=== PATIENT | male | born 1940 | race Caucasian/White ===

== ENCOUNTER 2016-10-22 08:23 | Observation (INO) | payer MEDICARE ==
[~2016-10-22] VITALS: Ht 152.4 cm; Wt 94.0 kg
[~2016-10-22 08:23] MED LIST: ADULT ASPIRIN E81 MG PO; ALBUTERO1 IN; AMBIEN10 MG PO; AMBIEN5 MG OR; AMITRIPTYLIN25 MG PO; AMITRIPTYLIN50 MG PO; ASPIRIN CHEWABL81 MG PO; ASPIRIN LOW DOS81 MG PO; AUGMENTIN875TAB OR; AUGMENTIN875TAB PO; BAYER ASA325 MG PO; CARVEDILOL12.5 MG PO; CARVEDILOL6.25 MG PO; CEPHALEXIN500 MG PO; CIALIS2.5 MG PO; CIALIS20 MG PO; CIPROFLOXACN500 MG PO; CYMBALTA30 MG PO; CYMBALTA60 MG PO; DEPO-TESTOS100 MG/ML IM; DEPO-TESTOS200 MG/M1 IM; DIAZEPAM10 MG OR; DILAUDID4 MG OR; DILAUDID4 MG PO; DULCOLAX5 MG OR; DULERA1 AER IN; DURAGESIC75 MCG/H1 TD; EC ASPIRIN325 M1 OR; FENTANYL100 MCG/H TD; FLEXERIL10 MG PO; FLUARIX QUADRIV1 IN1 IM; FLUTICASONE50 MCG; FLUZONE SPLT1 M1 IM; FORTESTA TD; GABAPENTIN300 MG PO; GABAPENTIN600 MG PO; LASIX40 MG PO; LISINOPRIL5 MG; LISINOPRIL5 MG PO; METOLAZONE2.5 MG PO; MILK OF MAG30 ML/UDC PO; NAPROSYN500 MG OR; NEURONTIN800 MG OR; PERCOCET 5/325M1 TAB PO; PERCOCET1 TA2 OR; PLAVIX75 MG OR; PROAIR HFA IN; PYRIDIUM200 MG PO; ROBITUSSIN AC10 ML PO; SENNA S1 TAB PO; SERTRALINE HCL25 MG PO; SERTRALINE50 MG PO; SMZ-TMP DS1 TAB PO; TAM75CAP PO; TENORMIN OR; TRANSDERM-SCOP1.5 MG TD; VYTORIN 10/201 TAB OR; WAL-FEX D 1212 HOUR PO; XANAX0.25 MG OR; ZOLPIDEM10 MG PO; ZOLPIDEM5 M1 PO; ZPAK PO; [UNRECOGNIZED DRUG - SUPPLY]; [UNRECOGNIZED DRUG - SUPPLY] SC; tylenol#3 OR
[2016-10-22 08:53] LABS: HEMATOCRIT 55.7 % (39.0-50.0); HEMOGLOBIN 18.6 g/dl (14.0-18.0); IMMATURE GRANULOCYTES 0.9 % (0.0-1.0); MEAN CELL VOLUME 88.1 fL CALC (80.0-100.0); MEAN CORPUSCULAR HGB 29.4 pG CALC (26.0-32.0); MEAN CORPUSCULAR HGB CONC 33.4 g/L CALC (32.0-36.0); NEUT# 10.03 thou/uL (1.82-7.42); RED BLOOD COUNT 6.32 mill/uL (4.70-6.10); RED CELL DISTRI WIDTH 15.8 % (11.5-15.5)
[2016-10-22 09:19] LABS: ALBUMIN 4.7 g/dL (3.2-5.0); ALKALINE PHOSPHATASE 71 u/l (38-126); ANION GAP 17 (6-22 (CALC)); BILIRUBIN, TOTAL 1.4 mg/dL (0.0-1.4); BUN 27 mg/dL (8-23); BUN/CREATININE RATIO 25 (12-20 (CALC)); CALCIUM 9.8 mg/dL (8.4-10.2); CARBON DIOXIDE 31 mmol/l (22-30); CHLORIDE 93 mmol/l (95-108); CREATININE 1.1 mg/dL (0.7-1.3); GFR > 60 ML/MIN (>=60 (CALC)); GFR FOR AFR.AMER. > 60 ML/MIN (>=60 (CALC)); GLUCOSE 100 mg/dL (82-115); POTASSIUM 3.6 mmol/l (3.5-5.1); SGOT/AST 35 u/l (19-48); SGPT/ALT 36 u/l (11-66); SODIUM 138 mmol/l (137-146); TOTAL PROTEIN 7.8 g/dL (6.3-8.2)
[2016-10-22] MEDS ORDERED: COLACE100 MG PO (09:24)
[2016-10-22] MEDS ORDERED: MIRALAX3350 N1 PO (09:24)
[2016-10-22 09:29] LABS: URINE BILIRUBIN - DIPSTICK NEGATIVE (NEGATIVE); URINE BLOOD DIPSTICK NEGATIVE (NEGATIVE); URINE CLARITY CLEAR; URINE COLOR YELLOW; URINE GLUCOSE - DIPSTICK NEGATIVE (NEGATIVE); URINE KETONE NEGATIVE (NEGATIVE); URINE LEUK ESTERASE NEGATIVE (NEGATIVE); URINE NITRITE - DIPSTICK NEGATIVE (Negative); URINE SPECIFIC GRAVITY 1.015; URINE UROBILINOGEN - DIPSTICK 0.2 E.U./dL (0.2)
[2016-10-22 09:30] LABS: URINE PROTEIN - DIPSTICK Trace mg/dL (NEG-TRACE)
[2016-10-22 09:31] LABS: MYOGLOBIN 432 ng/mL (0 - 121)
[2016-10-22 12:20] VITALS: BP 148/71
[2016-10-22 15:42] VITALS: BP 135/67
[2016-10-22 20:00] VITALS: BP 130/57
[2016-10-23 04:00] VITALS: BP 116/61
[2016-10-23 05:32] LABS: HEMATOCRIT 48.8 % (39.0-50.0); HEMOGLOBIN 16.6 g/dl (14.0-18.0); IMMATURE GRANULOCYTES 0.6 % (0.0-1.0); MEAN CELL VOLUME 88.9 fL CALC (80.0-100.0); MEAN CORPUSCULAR HGB 30.2 pG CALC (26.0-32.0); NEUT# 6.99 thou/uL (1.82-7.42); RED BLOOD COUNT 5.49 mill/uL (4.70-6.10); RED CELL DISTRI WIDTH 15.6 % (11.5-15.5)
[2016-10-23 05:41] LABS: ALBUMIN 3.6 g/dL (3.2-5.0); ALKALINE PHOSPHATASE 57 u/l (38-126); ANION GAP 12 (6-22 (CALC)); BUN 21 mg/dL (8-23); BUN/CREATININE RATIO 24 (12-20 (CALC)); CALCIUM 8.9 mg/dL (8.4-10.2); CARBON DIOXIDE 32 mmol/l (22-30); CHLORIDE 97 mmol/l (95-108); CREATININE 0.9 mg/dL (0.7-1.3); GFR > 60 ML/MIN (>=60 (CALC)); GFR FOR AFR.AMER. > 60 ML/MIN (>=60 (CALC)); GLUCOSE 88 mg/dL (82-115); POTASSIUM 3.9 mmol/l (3.5-5.1); SGOT/AST 31 u/l (19-48); SGPT/ALT 29 u/l (11-66); SODIUM 136 mmol/l (137-146); TOTAL PROTEIN 6.2 g/dL (6.3-8.2)
[2016-10-23 09:41] VITALS: BP 124/58
[2016-10-23 16:11] VITALS: BP 105/56
[2016-10-23 20:30] VITALS: BP 134/65
[2016-10-24 05:35] VITALS: BP 117/72
[2016-10-24 08:00] VITALS: BP 134/59
[2016-10-24 08:55] VITALS: BP 134/59
== END 2016-10-24 14:40 | disposition home or self-care (01) ==
LOC: ENPENDDIS → ED 08:23 → ED-I 10:13 → ED 10:25 → MS2 10:26
PROVIDERS: Emergency Medicine; ADMIT Internal Medicine Geriatric Medicine; ATTEND Internal Medicine Geriatric Medicine
PROC: 0T9B70Z Drainage of Bladder with Drainage Device, Via Natural or Artificial Opening (ICD-10-PCS; principal; 2016-10-22)
DX: K59.03 Drug induced constipation (principal); N40.1 Benign prostatic hyperplasia with lower urinary tract symptoms; R33.8 Other retention of urine; G60.0 Hereditary motor and sensory neuropathy; I25.10 Atherosclerotic heart disease of native coronary artery without angina pectoris; I10 Essential (primary) hypertension; J44.9 Chronic obstructive pulmonary disease, unspecified; T40.2X5A Adverse effect of other opioids, initial encounter; F11.20 Opioid dependence, uncomplicated; R97.20 Elevated prostate specific antigen [PSA]; Z96.89 Presence of other specified functional implants; Z99.3 Dependence on wheelchair; Z95.0 Presence of cardiac pacemaker; R94.31 Abnormal electrocardiogram [ECG] [EKG]

== ENCOUNTER 2017-06-02 09:18 | Emergency (ER) | payer MEDICARE ==
[~2017-06-02] VITALS: Ht 177.8 cm; Wt 102.0 kg
[~2017-06-02 09:18] MED LIST changes: +COLACE100 MG PO; +MIRALAX3350 N1 PO
[2017-06-02] MEDS ORDERED: LIPITOR20 M1 PO (10:31)
[2017-06-02] MEDS ORDERED: XARELTO10 MG PO (10:32)
[2017-06-02 14:21] VITALS: BP 166/88
== END 2017-06-02 15:09 | disposition home or self-care (01) ==
LOC: ED 09:18
DX: I82.812 Embolism and thrombosis of superficial veins of left lower extremity (principal); M79.605 Pain in left leg; Z79.01 Long term (current) use of anticoagulants; Z95.810 Presence of automatic (implantable) cardiac defibrillator

== ENCOUNTER 2017-06-19 14:37 | Inpatient (IN) | payer MEDICARE ==
[~2017-06-19] VITALS: Ht 177.8 cm; Wt 88.0 kg
[~2017-06-19 14:37] MED LIST changes: +ATORVASTATIN CA40 MG PO; -CARVEDILOL12.5 MG PO; +CARVEDILOL25 MG PO; +XARELTO10 MG PO
[2017-06-19 15:00] VITALS: BP 159/78
--- NOTE | 2017-06-19 15:00 | NUR ---
PT ARRIVED TO FLOOR VIA OWN ELECTRIC WHEELCHAIR. TRANSFERED OVER TO BED BY STAFF X 2. PT. CYANOTIC. O2 @ 2L VIA NC APPLIED. PT REPORTS URINARY RETENTION. PELVIC DISTENTION AND DISCOMFORT. HOPPER 16 FR INSERTED BY STERILE TECHNIQUE. SAMPLE SENT TO LAB. IVS INSETION ATTEMPTED BY MULTIPLA STAFF. #22 RH, IVF CONNECTED. CALL LIGHT REVIEWED AND IN REACH. PLAN OF CARE DISCUSSED. FALL PRECAUTIONS REINFORCED. PT STATES UNDERSTADNING OF INFORMATION.
--- NOTE | 2017-06-19 16:00 | NUR ---
TYLENOL PO ADMINISTERED FOR TEMP OF 101.3. WILL CONTINUE TO MONITOR.
[2017-06-19 16:26] LABS: IMMATURE GRANULOCYTES 0.8 % (0.0-1.0); MEAN CELL VOLUME 93.7 fL CALC (80.0-100.0); MEAN CORPUSCULAR HGB 30.7 pG CALC (26.0-32.0); MEAN CORPUSCULAR HGB CONC 32.8 g/L CALC (32.0-36.0); NEUT# 14.89 thou/uL (1.82-7.42); RED BLOOD COUNT 5.11 mill/uL (4.70-6.10); RED CELL DISTRI WIDTH 15.3 % (11.5-15.5)
[2017-06-19 16:28] LABS: URINE BILIRUBIN - DIPSTICK NEGATIVE (NEGATIVE); URINE BLOOD DIPSTICK LARGE (NEGATIVE); URINE COLOR YELLOW; URINE GLUCOSE - DIPSTICK NEGATIVE (NEGATIVE); URINE KETONE NEGATIVE (NEGATIVE); URINE LEUK ESTERASE LARGE (Negative); URINE NITRITE - DIPSTICK NEGATIVE (Negative); URINE PH 7.5 (4.5-8.0); URINE PROTEIN - DIPSTICK 100 mg/dL (NEG-TRACE); URINE SPECIFIC GRAVITY 1.015
[2017-06-19 16:29] LABS: URINE CLARITY TURBID
[2017-06-19 16:30] LABS: HEMATOCRIT 47.9 % (39.0-50.0); HEMOGLOBIN 15.7 g/dl (14.0-18.0)
[2017-06-19 16:32] LABS: URINE BACTERIA MODERATE hpf; URINE SQUAMOUS EPITHELIAL CELL FEW EPI/hpf (0-FEW); URINE WBC 50-100 WBC/hpf (0-5)
[2017-06-19 16:32] LABS: ANION GAP 16 (6-22 (CALC)); BUN 16 mg/dL (8-23); BUN/CREATININE RATIO 15 (12-20 (CALC)); CARBON DIOXIDE 33 mmol/l (22-30); CHLORIDE 95 mmol/l (95-108); CREATININE 1.1 mg/dL (0.7-1.3); GFR > 60 ML/MIN (>=60 (CALC)); GFR FOR AFR.AMER. > 60 ML/MIN (>=60 (CALC)); POTASSIUM 3.3 mmol/l (3.5-5.1); SODIUM 141 mmol/l (137-146)
[2017-06-19 20:30] VITALS: BP 131/73
--- NOTE | 2017-06-19 22:15 | NUR ---
PT.MEDICATED FOR PAIN IN PELVIC URINARY TRACT AREA/BURNING 8/10 REPORTED AND HEADACHE. DENIES ANY OTHER NEEDS AT THIS TIME.
--- NOTE | 2017-06-19 22:49 | NUR ---
PT.IS UPRIGHT IN BED WATCHING TV W/LIGHTS ON. PT.MEDICATED ORDERS PROVIDE FOR PM MEDICATIONS. PT.REPORTS THAT HE NORMALLY TAKES DILAUDID 4MG AT BEDTIME FOR PAIN AND SLEEP. I CONTACTED REGARDING [facility] MED AND RECEIVED AN ORDER. PT.DENIES ANY OTHER NEEDS AT THIS TIME. CALL LIGHT W/IN REACH
[2017-06-20] VITALS (7 sets, daily range): BP systolic 101–148; BP diastolic 37–81
--- NOTE | 2017-06-20 00:30 | NUR ---
PT.MEDICATED FOR TEMP OF 102.1, ROOM TURNED COOL AND PT.LEFT W/SHEET ONLY
--- NOTE | 2017-06-20 03:43 | NUR ---
PT.FEVER BROKE @98.8. PT.IS VERY SWEATY, BED IS WET. PT.PROVIDED BEDBATH AND REDRESSED W/BEDDING CHANGE. NEW BAG OF IV FLUIDS RUNNING AT THIS TIME AND HOPPER CATHETER EMPTIED OF SAIRA CLOUDY URINE 500CC'S. HOPPER CATHETER YANG-CARE PROVIDED AT THIS TIME. DENIES ANY OTHER NEEDS AT THIS TIME. CALL LIGHT IS W/IN REACH
[2017-06-20 05:26] LABS: HEMATOCRIT 43.9 % (39.0-50.0); HEMOGLOBIN 14.1 g/dl (14.0-18.0); IMMATURE GRANULOCYTES 0.9 % (0.0-1.0); MEAN CELL VOLUME 95.2 fL CALC (80.0-100.0); MEAN CORPUSCULAR HGB 30.6 pG CALC (26.0-32.0); MEAN CORPUSCULAR HGB CONC 32.1 g/L CALC (32.0-36.0); NEUT# 14.78 thou/uL (1.82-7.42); RED BLOOD COUNT 4.61 mill/uL (4.70-6.10); RED CELL DISTRI WIDTH 15.6 % (11.5-15.5)
[2017-06-20 05:51] LABS: ALBUMIN 3.3 g/dL (3.2-5.0); ALKALINE PHOSPHATASE 75 u/l (38-126); ANION GAP 14 (6-22 (CALC)); BUN 17 mg/dL (8-23); BUN/CREATININE RATIO 16 (12-20 (CALC)); CARBON DIOXIDE 33 mmol/l (22-30); CHLORIDE 97 mmol/l (95-108); CREATININE 1.1 mg/dL (0.7-1.3); GFR > 60 ML/MIN (>=60 (CALC)); GFR FOR AFR.AMER. > 60 ML/MIN (>=60 (CALC)); POTASSIUM 3.5 mmol/l (3.5-5.1); SGOT/AST 23 u/l (19-48); SGPT/ALT 26 u/l (11-66); SODIUM 141 mmol/l (137-146); TOTAL PROTEIN 5.9 g/dL (6.3-8.2)
--- NOTE | 2017-06-20 07:00 | NUR ---
RECEIVED BEDSIDE REPORT FROM MALIK BECKHAM. RESTING IN HIGH FOWLERS WITH EYES CLOSED, AWAKENS EASILY. RESPS EVEN AND UNLABORED ON O2 VIA NC, TELE MONITOR IN PLACE. #22 RH INFUSING WITHOUT DIFFICULTY, SITE APPEARS HEALTHY. HOPPER PATENT, DRAINING LISA COLORED URINE TO GRAVITY, STRAP TO UPPER RIGHT LEG. VOICES NO NEEDS AT THIS TIME. BED IN LOWEST POSITION WITH WHEELS LOCKED. PLAN OF CARE DISCUSSED. SAFETY PRECAUTIONS REINFORCED. BED ALARM ON FOR SAFETY. CALL LIGHT WITHIN REACH. WILL CONTINUE TO MONITOR
--- NOTE | 2017-06-20 09:00 | NUR ---
DR GREGORIO IN WITH PT, NEW ORDERS RECEIVED.
--- NOTE | 2017-06-20 12:00 | NUR ---
RESTING IN HIGH FOWLERS EATING LUNCH. RESPS EVEN AND UNLABORED ON O2 VIA NC, TELE MONITOR IN PLACE. HOPPER PATENT DRAINING LISA COLORED URINE TO GRAVITY. #22 RH INFUSING WIHTOUT DIFFICULTY, SITE APPEARS HEALTHY. DENIES PAIN OR DISCOMFORT. CALL LIGHT WITHIN REACH. WILL CONTINUE TO MONITOR.
[2017-06-20] MEDS ORDERED: LOPRESSOR50 M1 PO (15:27)
[2017-06-20] MEDS ORDERED: COLACE100 MG PO (15:28)
--- NOTE | 2017-06-20 15:47 | NUR ---
REPOSITIONED ON LEFT SIDE FOR COMFORT. RESPS EVEN AND UNLABORED ON O2 VIA NC, TELE MONITOR IN PLACE. #22 RH INFUSING WITHOUT DIFFICULTY, SITE APPEARS HEALTHY. HOPPER PATENT, DRAINING LISA COLORED URINE TO GRAVITY, STRAP TO UPPER RIGHT LEG. DENIES PAIN OR DISCOMFORT. CALL LIGHT WITHIN REACH. WILL CONTINUE TO MONITOR.
--- NOTE | 2017-06-20 19:30 | NUR ---
PATIENT RESTING IN BED-AWAKE ALERT AND ORIENTEDX3. PATIENT REPOSITIONED IN BED. HEELS ELEVATED OFF THE MATTRESS. O2 VIA NASAL CANNULA IN PLACE. HOPPER CATH PATENT AND DRAINING CLEAR YELLOW URINE. IV SITE TO RIGHT HAND APPEARS HEALTHY WITH IVF D51/2NS PATENT AND INFUSING [id number]/HR. SAFETY PRECAUTIONS REINFORCED.CALL LIGHT IN REACH. WILL CONT TO MONITOR.
--- NOTE | 2017-06-21 | NUR ---
PATIENT RESTING IN BED-MEDICATED FOR C/O CHRONIC PAIN WITH DILAUDID 4MG PO AND FOR SLEEP WITH RESTORIL 15MG PO. CALL LIGHT IN REACH. WILL CONT TO MONITOR.
[2017-06-21 00:25] VITALS: BP 106/58
[2017-06-21 03:44] VITALS: BP 116/62
--- NOTE | 2017-06-21 04:00 | NUR ---
PATIENT APPEARS SLEEPING WITH EYES CLOSED AND O2 VIA NASAL CANNULA IN PLACE. IVF D51/2NS PATENT AND INFUSING RIGHT HAND IV SITE AT 100/HR. SITE APPERS ADA AT THIS TIME. HOPPER PATENT AND DRAINING CLEAR YELLOW URINE. CALL LIGHT IN REACH. WILL CONT TO MONITOR.
--- NOTE | 2017-06-21 08:00 | NUR ---
PT AWAKE, ALERT, RESTS IN THE BED IN NO DISTRESS. LUNGS ARE CLEAR BUT SOMEWHAT DIMINISHED IN THE BASES, 2 LPM NC. PT STATES NO BM SINCE SUNDAY, TO ADDRESS WITH DR GREGORIO. PEDAL EDEMA IS 2+, WHICH MAY BE HIS NORM. HOPPER IN PLACE.
[2017-06-21 11:00] VITALS: BP 128/62
--- NOTE | 2017-06-21 12:00 | NUR ---
PT REMAINS BEFORE, NO ACUTE DISTRESS. PT PROVIDED CITRATE OF MAGNESIA TO ASSIST IN HAVING BM. PAIN MED PROVIDED ORDERED THIS AM.
[2017-06-21 16:00] VITALS: BP 132/71
--- NOTE | 2017-06-21 16:00 | NUR ---
PT BATHED BY NURSING ASSISTANTS. PT'S IS AT BEDSIDE, PROVIDES HELP NEEDED. ABX GIVEN ORDERED. NO SOB, NO URINARY SYMPTOMS.
--- NOTE | 2017-06-21 19:15 | NUR ---
PT SITTING UP IN BED WATCHING. PT IS ALERT AND ORIENTED X3 . PERRLA. RESP ARE EVEN AND UNLABORED. NO DISTRESS NOTED. LUNGS ARE CLEAR. O2 2L NC IN PLACE. HR REGULAR. TELE IN PLACE. PULSES PALPABLE THROUGHOUT. EDEMA TO BILAT LOWER EXT. PT STATES THAT THIS IS NORMAL FOR HIM. BS ACTIVE. #22 RIGHT HAND WITH D51/2 @100CC/HR HOPPER DRAINING CLEAR YELLOW URINE. WILL CONTINUE TO MONITOR. CALL LIGHT WITH IN REACH.
[2017-06-21 19:22] VITALS: BP 155/87
--- NOTE | 2017-06-21 20:00 | NUR ---
PT ASSISTED TO BATHROOM. COMPLETE ASSISTANCE REQUIRED. PT WITH MULTIPLE DIFFICULTIES TO AND FROM BATHROOM. PT ASSISTED BACK TO BED. WILL CONTINUE TO MONITOR
--- NOTE | 2017-06-21 21:14 | NUR ---
#22 RIGHT HAND REMOVED. CATH TIP INTACT. #20 LFA STARTED BY ROSAURA BECKHAM. PT TOLERATED WELL
[2017-06-22] VITALS: BP 115/61
--- NOTE | 2017-06-22 | NUR ---
PT RESTING IN BED EYES CLOSED. RESP ARE EVEN AND UNLABORED. NO DISTRESS NOTED. WILL CONTINUE TO MONITOR
--- NOTE | 2017-06-22 04:00 | NUR ---
PT RESTING IN BED WITH EYES CLOSED. RESP ARE EVEN AND UNLABORED. NO DISTRESS NOTED. WILL CONTINUE TO MONITOR
[2017-06-22 05:30] VITALS: BP 125/71
[2017-06-22 06:37] LABS: HEMATOCRIT 42.6 % (39.0-50.0); HEMOGLOBIN 13.6 g/dl (14.0-18.0); IMMATURE GRANULOCYTES 0.5 % (0.0-1.0); MEAN CELL VOLUME 96.4 fL CALC (80.0-100.0); MEAN CORPUSCULAR HGB 30.8 pG CALC (26.0-32.0); MEAN CORPUSCULAR HGB CONC 31.9 g/L CALC (32.0-36.0); NEUT# 5.53 thou/uL (1.82-7.42); RED BLOOD COUNT 4.42 mill/uL (4.70-6.10); RED CELL DISTRI WIDTH 15.1 % (11.5-15.5)
[2017-06-22 06:44] LABS: ALBUMIN 2.9 g/dL (3.2-5.0); ALKALINE PHOSPHATASE 68 u/l (38-126); ANION GAP 12 (6-22 (CALC)); BILIRUBIN, TOTAL 0.3 mg/dL (0.0-1.4); BUN 15 mg/dL (8-23); BUN/CREATININE RATIO 14 (12-20 (CALC)); CARBON DIOXIDE 35 mmol/l (22-30); CHLORIDE 99 mmol/l (95-108); GFR > 60 ML/MIN (>=60 (CALC)); GFR FOR AFR.AMER. > 60 ML/MIN (>=60 (CALC)); SGPT/ALT 57 u/l (11-66); SODIUM 142 mmol/l (137-146); TOTAL PROTEIN 5.4 g/dL (6.3-8.2)
[2017-06-22 06:47] LABS: SGOT/AST 55 u/l (19-48)
[2017-06-22 07:32] VITALS: BP 139/71
--- NOTE | 2017-06-22 07:45 | NUR ---
ASSESSMENT IS COMPLETED: IV SITE IS FREE FROM REDNESS OR EDEMA. NO DISTRESS NOTED. HR IS REG, PULSES ARE STRONG X4,ABD IS SOFT WITH ACTIVE BS, HOPPER IN PLACE. CONTINUE TO OSBERVE AND MONITOR.
--- NOTE | 2017-06-22 10:00 | NUR ---
HOPPER DISCONTINUED PT TOLERATED WELL. HAS VOIDED WITHIN 30MINUTES AFTER PULLING.
--- NOTE | 2017-06-22 10:50 | NUR ---
[facility]NA[facility] IN TO VISIT WITH THE PT. INQUIRING INFORMATION.
[2017-06-22 11:30] VITALS: BP 168/77
--- NOTE | 2017-06-22 12:00 | NUR ---
PT IS RELAXING IN BED WITH NO DISTRESS NOTED. IV SITE IS FREE FROM REDNESS OR EDEMA.
[2017-06-22 16:00] VITALS: BP 141/70
--- NOTE | 2017-06-22 16:01 | NUR ---
PT IS NEEDING THE BEDPAN,IV SITE IS FREE FROM REDNESS OR EDEMA. CONTINUE TO OSBERVE AND MONITOR.
--- NOTE | 2017-06-22 19:15 | NUR ---
PT SITTING UP IN BED WATCHING TV. PT IS ALERT AND ORIENTED X3. PERRLA. RESP ARE EVEN AND UNLABORED. NO DISTRESS NOTED. LUNGS ARE DIMINISHED IN THE BASES OTHERWISE CLEAR THROUGHOUT. HR REGULAR. TELE IN PLACE. PULSES PALPABLE THROUGHOUT. EDEMA TO BILAT LOWER EXTTREMITIES. PT STATES THAT THIS IS THE NORMAL FOR HIM DUE TO CMT. BS ACTIVE. PT VOIDING VIA URINAL. #20 LFS WITH D5 1/2 NS @100CC/HR INFUSING. NO REDNESS OR EDEMA NOTED. WILL CONTINUE TO MONITOR. CALL LIGHT IN REACH.
[2017-06-22 20:24] VITALS: BP 124/69
[2017-06-23] VITALS (7 sets, daily range): BP systolic 132–179; BP diastolic 71–102
--- NOTE | 2017-06-23 | NUR ---
PT RESTING IN BED. INTERMITTENT SLEEP NOTED. PT USING URINAL FREQUENTLY WITH SMALL OUTPUT WHEN VOIDING. PT DENIES PAIN WHEN VOIDING. WILL CONTINUE TO MONITOR
--- NOTE | 2017-06-23 04:09 | NUR ---
PT RESTING IN BED WITH EYES CLOSED. RESP ARE EVEN AND UNLABORED. NO DISTRESS NOTED. WILL CONTINUE TO MONITOR
[2017-06-23 05:58] LABS: HEMOGLOBIN 13.6 g/dl (14.0-18.0); IMMATURE GRANULOCYTES 1.3 % (0.0-1.0); MEAN CORPUSCULAR HGB 30.4 pG CALC (26.0-32.0); MEAN CORPUSCULAR HGB CONC 31.6 g/L CALC (32.0-36.0); NEUT# 3.9 thou/uL (1.82-7.42); RED BLOOD COUNT 4.48 mill/uL (4.70-6.10); RED CELL DISTRI WIDTH 15.2 % (11.5-15.5)
[2017-06-23 06:06] LABS: ALBUMIN 2.9 g/dL (3.2-5.0); ALKALINE PHOSPHATASE 66 u/l (38-126); ANION GAP 13 (6-22 (CALC)); BILIRUBIN, TOTAL 0.3 mg/dL (0.0-1.4); BUN 11 mg/dL (8-23); BUN/CREATININE RATIO 12 (12-20 (CALC)); CARBON DIOXIDE 32 mmol/l (22-30); CHLORIDE 102 mmol/l (95-108); CREATININE 0.9 mg/dL (0.7-1.3); GFR > 60 ML/MIN (>=60 (CALC)); GFR FOR AFR.AMER. > 60 ML/MIN (>=60 (CALC)); POTASSIUM 3.6 mmol/l (3.5-5.1); SGOT/AST 41 u/l (19-48); SGPT/ALT 57 u/l (11-66); SODIUM 143 mmol/l (137-146); TOTAL PROTEIN 5.4 g/dL (6.3-8.2)
--- NOTE | 2017-06-23 07:40 | NUR ---
ASSESSMENT IS COMPLTED; IV SITE IS FREE FROM REDNESS OR EDEMA. BREATH SOUNDS ARE CLEAR, BILATERALLY, NO C/O SOB, HR IS REG,PULSES ARE STRONG X4. ABD IS SOFT WITH ACTIVE BS, CONTINUE TO OBSERVE AND MONITOR.
--- NOTE | 2017-06-23 12:10 | NUR ---
PT IS RELAXING IN BED WITH NO DISTRESS NOTED. IV SITE IS FREE FROM REDNESS OR EDEMA.
--- NOTE | 2017-06-23 16:10 | NUR ---
PT IS VISITING WITH HIS NO DISTRESS NOTED. IV SITE IS FREE FROM REDNESS OR EDEMA. TELE MONITOR IN PLACE. CONTINUE TO OBSERVE AND MONITOR.
--- NOTE | 2017-06-23 19:43 | NUR ---
PT IN HIGH FOWLERS A/O X3, RESPIRATIONS EVEN AND UNLABORED ON RA. DENIES PAIN OR DISCOMFORT. D51/2NS INFUSING TO LFA AT [facility]. TELE IN PLACE. ENCOURAGED TO USE CALL LIGHT FOR ASSISTANCE, WILL CONTINUE TO MONITOR.
--- NOTE | 2017-06-23 23:03 | NUR ---
IN SEMIFOWLERS WITH EYES CLOSED, RESPIRATIONS EVEN AND UNLABORED.
--- NOTE | 2017-06-24 01:00 | NUR ---
PT IN HIGHFOWLERS USING ELECTRICAL SHAVER, A/O X3.
[2017-06-24 01:05] VITALS: BP 168/82
--- NOTE | 2017-06-24 01:49 | NUR ---
C/O PAIN TO LOWER EXTRMITIES, TYLENOL 650MG PO PROVIDED AT THIS TIME.
--- NOTE | 2017-06-24 03:00 | NUR ---
PT USING CALL LIGHT, STATES TEMP IN ROOM IS TOO COLD, ROOM TEMP ADJUTED. CALL LIGHT IN REACH. PT IS A/O X3.
--- NOTE | 2017-06-24 03:30 | NUR ---
PT USING CALL LIGHT, STATES TEMP IN ROOM IS TOO HOT, ROOM TEMP ADJUTED. CALL LIGHT IN REACH.
[2017-06-24 03:58] VITALS: BP 159/73
--- NOTE | 2017-06-24 04:30 | NUR ---
PT USING CALL LIGHT, STATES TEMP IN ROOM IS TOO COLD, ROOM TEMP ADJUTED. CALL LIGHT IN REACH. RESPIRATIONS EVEN AND UNLABORED ON RA.
[2017-06-24 05:28] LABS: HEMATOCRIT 43.4 % (39.0-50.0); HEMOGLOBIN 13.9 g/dl (14.0-18.0); IMMATURE GRANULOCYTES 2.3 % (0.0-1.0); MEAN CELL VOLUME 95.2 fL CALC (80.0-100.0); MEAN CORPUSCULAR HGB 30.5 pG CALC (26.0-32.0); NEUT# 4.34 thou/uL (1.82-7.42); RED BLOOD COUNT 4.56 mill/uL (4.70-6.10)
[2017-06-24 05:44] LABS: ANION GAP 13 (6-22 (CALC)); BUN 9 mg/dL (8-23); BUN/CREATININE RATIO 11 (12-20 (CALC)); CARBON DIOXIDE 30 mmol/l (22-30); CHLORIDE 102 mmol/l (95-108); CREATININE 0.8 mg/dL (0.7-1.3); GFR > 60 ML/MIN (>=60 (CALC)); GFR FOR AFR.AMER. > 60 ML/MIN (>=60 (CALC)); POTASSIUM 3.7 mmol/l (3.5-5.1); SODIUM 142 mmol/l (137-146)
--- NOTE | 2017-06-24 07:45 | NUR ---
ASSESSMENT IS COMPLETED: IV SITE IS FREE FROM REDNESS OR EDEMA. PT IS RESTING WITH EYES CLOSED. HR IS REG,PULSES ARE STRONG X4. ABD IS SOFT WITH ACTIVE BS. CONTINUE TO OBSERVE AND MONITOR.
[2017-06-24 08:35] VITALS: BP 142/67
[2017-06-24 11:00] VITALS: BP 150/74
--- NOTE | 2017-06-24 12:15 | NUR ---
PT HAS BEEN RESTING OFF AND ON THIS AM. DR. GREGORIO IN TO VISIT WITH PT. IV SITE IS FREE FROM REDNESS OR EDEMA. CONTINUE TO OBSERVE AND MONITOR.
--- NOTE | 2017-06-24 13:12 | NUR ---
pt had a large bm
--- NOTE | 2017-06-24 13:58 | NUR ---
PT HAS LEFT THE UNIT IN HIS SCOOTER.
--- NOTE | 2017-06-24 15:31 | NUR ---
PT ABLE TO PLACE SELF BACK TO BED WITH MINIMAL ASSIST. PLACED HIS OWN SCD BOOTS ON. IV SITE IS FREE FROM REDNESS OR EDEMA. TOLERATED MOVE WELL,. NO SOB EXIBITED,
[2017-06-24 16:00] VITALS: BP 154/82
--- NOTE | 2017-06-24 16:10 | NUR ---
PT IS IN BED WATCHING TV. NO DISTRESS NOTED. IV SITE IS FREE FROM REDNESS OR EDEMA. CONTINUE TO OSBERVE AND MONITOR.
[2017-06-24 19:20] VITALS: BP 159/87
--- NOTE | 2017-06-24 19:30 | NUR ---
PATIENT RESTING IN BED-AWAKE ALERT AND ORIENTEDX3. NO O2 AT THIS TIME WITH O2 SAT OF 94%. NO COMPLAINTS AT THIS TIME. HEP LOCK TO LEFT FOREARM-SITE APPEARS HEALTHY AT THIS TIME. VOIDING IN URINAL LISA URINE. YVONNE LE SWELLING NOTED AND FEET ELEVATED ON PILLOWS. DECLINES ANY SCD'S AT THIS TIME. PRODUCTIVE COUGH WITH THICK YELLOW SECREATIONS. SAFETY PRECAUTIONS REINFORCED. CALL LIGHT IN REACH. WILL CONT TO MONITOR.
--- NOTE | 2017-06-24 19:53 | NUR ---
CPT DONE. PATIENT WELL TOLERATED CPT. COUGH UP THICK YELLOHISH SECRETION.
--- NOTE | 2017-06-24 22:50 | NUR ---
PATIENT MEDICATED FOR SLEEP WITH RESTORIL 15MG PO AND FOR PAIN WITH DIDLAUDID 4MG PO FOR 9/10 LEG PAIN. CALL LIGHT IN REACH. WILL CONT TO MONITOR.
--- NOTE | 2017-06-24 23:53 | NUR ---
PATIENT MEDICATED FOR SLEEP WITH RESTORIL 15MG PO AND FOR PAIN WITH DILAUDID 4MG FOR 9/10 LEG PAIN. CALL LIGHT IN REACH. WILL CONT TO MONITOR.
[2017-06-25 00:03] VITALS: BP 141/66
--- NOTE | 2017-06-25 00:05 | NUR ---
PATIENT APPEARS SLEEPING AT THIS TIME WITH HOB ELEVATED AND EYES CLOSED. CALL LIGHT IN REACH. WILL CONT TO MONITOR.
--- NOTE | 2017-06-25 02:55 | NUR ---
APPEARS SLEEPING AT THIS TIME WITH HOB ELEVATED AND EYES CLOSED. CALL LIGHT IN REACH. WILL CONT TO MONITOR.
[2017-06-25 04:47] VITALS: BP 170/81
[2017-06-25 04:50] LABS: HEMOGLOBIN 14.2 g/dl (14.0-18.0); IMMATURE GRANULOCYTES 4.6 % (0.0-1.0); MEAN CELL VOLUME 94.9 fL CALC (80.0-100.0); MEAN CORPUSCULAR HGB CONC 31.6 g/L CALC (32.0-36.0); NEUT# 4.78 thou/uL (1.82-7.42); RED BLOOD COUNT 4.74 mill/uL (4.70-6.10); RED CELL DISTRI WIDTH 14.8 % (11.5-15.5)
[2017-06-25 05:15] VITALS: BP 168/81
--- NOTE | 2017-06-25 06:06 | NUR ---
PATIENT RESTING IN BED-MEDICATED FOR YVONNE LE PAIN-9/10 ON PAIN SCALE WITH DILAUDID 4MG PO. CALL LIGHT IN REACH. WILL CONT TO MONITOR.
[2017-06-25 06:23] LABS: ALBUMIN 3.1 g/dL (3.2-5.0); ALKALINE PHOSPHATASE 72 u/l (38-126); ANION GAP 13 (6-22 (CALC)); BILIRUBIN, TOTAL 0.3 mg/dL (0.0-1.4); BUN 9 mg/dL (8-23); BUN/CREATININE RATIO 9 (12-20 (CALC)); CARBON DIOXIDE 31 mmol/l (22-30); CHLORIDE 103 mmol/l (95-108); GFR > 60 ML/MIN (>=60 (CALC)); GFR FOR AFR.AMER. > 60 ML/MIN (>=60 (CALC)); POTASSIUM 3.8 mmol/l (3.5-5.1); SGOT/AST 37 u/l (19-48); SGPT/ALT 49 u/l (11-66); SODIUM 143 mmol/l (137-146); TOTAL PROTEIN 5.7 g/dL (6.3-8.2)
[2017-06-25 08:00] VITALS: BP 176/87
--- NOTE | 2017-06-25 08:00 | NUR ---
ASSESSMENT IS COMPLETED; IV SITE IS FREE FROM REDNESS OR EDEMA. HR IS IRREGULAR,. WITH PACEMAKER IN PLACE. BREATH SOUNDS ARE DIMINISHED. ABD IS SOFT WITH ACTIVE BS, CONTINUE TO OBSERVE AND MONITOR.
[2017-06-25 11:20] VITALS: BP 169/80
--- NOTE | 2017-06-25 12:30 | NUR ---
PT IS RELAXING IN BED WITH NO DISTRESS NOTED. IV SITE IS FREE FROM REDNESS OR EDEMA. CONTINUE TO OBSERVE AND MONITOR.
--- NOTE | 2017-06-25 14:24 | NUR ---
PT CALLED AND INQUIRED ABOUT THE SCOOTER. INFORMED THAT "YES " HE COULD GO ON THE SCOOTER. ASSISTED PT ON THE SCOOTER,. A LITTLE MORE SOB TODAY ON EXERTION,. ENCOURAGED HIM TO USE THE O2 BEFORE LEAVING THE ROOM. VERBALIZED UNDERSTANDING,
[2017-06-25 16:00] VITALS: BP 150/82
--- NOTE | 2017-06-25 16:00 | NUR ---
PT HAS BEEN VISITING WITH FAMILY NO DISTRESS NOTED. IV SITE IS FREE FROM REDNESS OR EDEMA. CONTINUE TO OSBERVE AND MONITOR. INQUIRED ABOUT PAIN MEDICATIONS. INFORMED TOO EARLY
[2017-06-25] MEDS ORDERED: LEVAQUIN750 MG PO (16:35)
--- NOTE | 2017-06-25 18:30 | NUR ---
IV SITE DISCONTINEUD CATHTER INTACT. DISCHARGE INSTRUCTIONS WERE GIVEN TO AND DAUGHTER. PT WAS HAVING AN ANXIETY ATTACK ABOUT GOING HOME WORRIED ABOUT HIS AND BEING A BURDEN,. EXPLAINED TO AND DAUGHTER IN FRONT OF PT THAT HE WAS RIDING SCOOTER ALL AFTERNOON AROUND THE HOSPITAL AND TALKING WITH PEOPLE NO O2 IN PLACE. CHECKED HIS O2 AND IT WAS 93 ON ROOM AIR. INSTRUCTED PT TO RELAX AND BREATHE IN THROUGH THE NOSE AND OUT OF THE MOUTH, BY THE TIME PT WAS READY COLOR IS BACK TO NORMAL AND BREATHING IS NORMAL. ABLE TO TRANSFER TO SCOOTER AND DRIVE TO GO HOME WITH AND DAUGHTER. CONTINUE TO OBSERVE AND MONITOR.
== END 2017-06-25 18:58 | DRG 190 ==
LOC: MS2 14:37
PROVIDERS: ADMIT Internal Medicine Geriatric Medicine; ATTEND Internal Medicine Geriatric Medicine
PROC: 0T9B70Z Drainage of Bladder with Drainage Device, Via Natural or Artificial Opening (ICD-10-PCS; principal; 2017-06-19)
DX: J44.0 Chronic obstructive pulmonary disease with (acute) lower respiratory infection (principal); J18.9 Pneumonia, unspecified organism; F11.20 Opioid dependence, uncomplicated; G60.0 Hereditary motor and sensory neuropathy; N39.0 Urinary tract infection, site not specified; I10 Essential (primary) hypertension; I87.8 Other specified disorders of veins; I25.10 Atherosclerotic heart disease of native coronary artery without angina pectoris; B96.4 Proteus (mirabilis) (morganii) as the cause of diseases classified elsewhere; K59.03 Drug induced constipation; T40.2X5A Adverse effect of other opioids, initial encounter; R33.9 Retention of urine, unspecified; G47.00 Insomnia, unspecified; Z87.440 Personal history of urinary (tract) infections; Z99.3 Dependence on wheelchair; Z96.89 Presence of other specified functional implants; Z95.0 Presence of cardiac pacemaker
CPT/HCPCS: Q9967

== ENCOUNTER 2018-02-01 09:56 | Day surgery (SDC) | payer MEDICARE ==
[~2018-02-01] VITALS: Ht 177.8 cm; Wt 102.1 kg
[~2018-02-01 09:56] MED LIST changes: +LEVAQUIN750 MG PO; +LOPRESSOR50 M1 PO; +SG ASA LOW81 M1 PO; +TAMSULOSIN HCL0.4 MG PO; +ZESTRIL5 M1 PO
[2018-02-01 13:54] VITALS: BP 116/67
== END 2018-02-01 14:32 | disposition home or self-care (01) ==
LOC: ENDO 09:56 → ORM 12:25 → ENDO 13:10 → ORM 13:10 → ENDO 13:25 → ORM 13:30 → ENDO 14:32
PROVIDERS: ATTEND Internal Medicine Gastroenterology
PROC: 0D758ZZ Dilation of Esophagus, Via Natural or Artificial Opening Endoscopic (ICD-10-PCS; principal; 2018-02-01)
PROC: 0DB48ZX Excision of Esophagogastric Junction, Via Natural or Artificial Opening Endoscopic, Diagnostic (ICD-10-PCS; 2018-02-01)
PROC: 0DB78ZX Excision of Stomach, Pylorus, Via Natural or Artificial Opening Endoscopic, Diagnostic (ICD-10-PCS; 2018-02-01)
PROC: 0DB58ZX Excision of Esophagus, Via Natural or Artificial Opening Endoscopic, Diagnostic (ICD-10-PCS; 2018-02-01)
DX: K22.2 Esophageal obstruction (principal); K29.60 Other gastritis without bleeding; K44.9 Diaphragmatic hernia without obstruction or gangrene; K29.80 Duodenitis without bleeding; K22.8 Other specified diseases of esophagus; K21.9 Gastro-esophageal reflux disease without esophagitis; K59.00 Constipation, unspecified; I10 Essential (primary) hypertension; I25.10 Atherosclerotic heart disease of native coronary artery without angina pectoris; G60.0 Hereditary motor and sensory neuropathy; G71.00 Muscular dystrophy, unspecified; I25.2 Old myocardial infarction; Z95.1 Presence of aortocoronary bypass graft

== ENCOUNTER 2018-07-02 16:06 | Observation (INO) | payer MEDICARE ==
[~2018-07-02] VITALS: Ht 177.8 cm; Wt 99.8 kg
--- NOTE | 2018-07-02 16:25 | NUR ---
PT ARRIVED TO FLOOR VIA HOME SCOOTER IN STABLE CONDITION;PT IS NON-AMBULATORY, MAX ASSIST REQUIRED R/T [facility] DISORDER;VS AND WEIGHT OBTAINED BY BHAVANI BALBUENA;PT A&O X3, ORIENTED TO ROOM AND CALL LIGHT SYSTEM;PT REPORTS INCREASING SOB SINCE Sunday06/29/18 AND BEING DIRECTLY ADMITTED BY AFTER APPT THIS AFTERNOON;ASSESSMENT COMPLETED;PT REPORTS CHRONIC PAIN BUT DENIES ANY CURRENT PAIN AT THIS TIME,PAIN SCALE AND REPORTING EDUCATED;RESPIRATIONS SHALLOW ON RA,WHEEZING/COARSE NOTED; PT REPORTS PRODUCTIVE COUGH AT TIMES SMALL/WHITE AND THICK IN CONSISTENCY. SPECIMEN CUP PROVIDED FOR SPUTUM CULTURE;ABDOMEN DISTENDED/SOFT ON PALPATION AND ACTIVE IN ALL 4 QUADRANTS,LAST BM 07/02/18;WEAK PEDAL PULSES WITH +3 EDEMA NOTED TO BLE, ENCOURAGED ELEVATION ON A PILLOW;SKIN APPEARS INTACT;#22G STARTED TO LEFT HAND ON FIRST ATTEMPT AND D5 1/2 NS STARTED @ 75ML/HR PER ORDER;PT DENIES ANY ADDITIONAL NEEDS AT THIS TIME AND IS ENCOURAGED TO CALL FOR ASSISTANCE IF NEEDED;FALL PRECAUTIONS IN PLACE WITH BED IN THE LOWEST POSITION AND CALL LIGHT IN REACH;WILL CONTINUE TO MONITOR
[2018-07-02 17:26] LABS: HEMATOCRIT 43.4 % (39.0-50.0); HEMOGLOBIN 14.1 g/dl (14.0-18.0); IMMATURE GRANULOCYTES 0.7 % (0.0-5.0); MEAN CELL VOLUME 91.6 fL CALC (80.0-100.0); MEAN CORPUSCULAR HGB 29.7 pG CALC (26.0-32.0); MEAN CORPUSCULAR HGB CONC 32.5 g/L CALC (32.0-36.0); NEUT# 5.32 thou/uL (1.82-7.42); RED BLOOD COUNT 4.74 mill/uL (4.70-6.10); RED CELL DISTRI WIDTH 14.2 % (11.5-15.5)
[2018-07-02 17:34] LABS: BUN 21 mg/dL (8-23); BUN/CREATININE RATIO 22 (12-20 (CALC)); CARBON DIOXIDE 28 mmol/l (22-30); CHLORIDE 100 mmol/l (95-108); CREATININE 0.9 mg/dL (0.7-1.3); GFR > 60 ML/MIN (>=60 (CALC)); GFR FOR AFR.AMER. > 60 ML/MIN (>=60 (CALC)); SODIUM 139 mmol/l (137-146)
[2018-07-02 17:37] LABS: ANION GAP 16 (6-22 (CALC)); POTASSIUM 4.7 mmol/l (3.5-5.1)
--- NOTE | 2018-07-02 18:50 | NUR ---
PT TRANSFERRED TO ROOM 281 FOR SAFETY.
[2018-07-02 19:10] VITALS: BP 133/72
--- NOTE | 2018-07-02 20:33 | NUR ---
ASSESSMENT COMPLETED; PT. SITTING UP IN BED WATCHING TV; UPDATED ON POC; VERBALIZES UNDERSTANDINGL; URINAL AND SPECIMEN CUP AT BEDSIDE; PT. IS AWARE OF SAMPLES NEEDED; C/O BILATERAL RIB AND BLE PAIN 11/16; MEDICATED WITH ORDERED PRN DILAUDID; WILL REASSESS; ENCOURAGED TO CALL FOR ANY NEEDS; CALL LIGHT IS IN REACH; WILL CONTINUE TO MONITOR.
[2018-07-02 21:32] LABS: URINE BILIRUBIN - DIPSTICK NEGATIVE (NEGATIVE); URINE BLOOD DIPSTICK NEGATIVE (NEGATIVE); URINE COLOR YELLOW; URINE GLUCOSE - DIPSTICK NEGATIVE (NEGATIVE); URINE KETONE NEGATIVE (NEGATIVE); URINE LEUK ESTERASE SMALL (Negative); URINE NITRITE - DIPSTICK NEGATIVE (Negative); URINE PH 6.5 (4.5-8.0); URINE PROTEIN - DIPSTICK NEGATIVE (NEG-TRACE); URINE UROBILINOGEN - DIPSTICK 0.2 E.U./dL (0.2)
[2018-07-02 21:36] LABS: URINE CLARITY HAZY
[2018-07-02 21:43] LABS: URINE RBC 0-2 RBC/hpf (0-5)
--- NOTE | 2018-07-02 23:10 | NUR ---
PT. SITTING UP IN BED WITH NO DISTRESS NOTED; REQUESTING PRN SLEEPING PILL;MEDICATED WITH ORDERED RESTORIL ALONG WITH SCHED MEDS; URINAL EMPTIED; CALL LIGHT IS IN REACH; WILL CONTINUE TO MONITOR.
--- NOTE | 2018-07-03 03:20 | NUR ---
RESTING IN BED WITH EYES CLOSED; RESP EVEN AND UNLABORED; NO DISTRESS NOTED; CALL LIGHT IS IN REACH;
[2018-07-03 04:10] VITALS: BP 147/87
--- NOTE | 2018-07-03 05:27 | NUR ---
SCHEDULED SOLU-MEDROL GIVEN; NO DISTRESS NOTED; DENIES NEEDS; CALL LIGHT IS IN REACH.
[2018-07-03 05:53] LABS: HEMATOCRIT 41.9 % (39.0-50.0); HEMOGLOBIN 13.7 g/dl (14.0-18.0); MEAN CELL VOLUME 91.7 fL CALC (80.0-100.0); MEAN CORPUSCULAR HGB CONC 32.7 g/L CALC (32.0-36.0); NEUT# 6.02 thou/uL (1.82-7.42); RED BLOOD COUNT 4.57 mill/uL (4.70-6.10); RED CELL DISTRI WIDTH 14.3 % (11.5-15.5)
[2018-07-03 06:09] LABS: ALKALINE PHOSPHATASE 85 u/l (38-126); ANION GAP 15 (6-22 (CALC)); BILIRUBIN, TOTAL 0.4 mg/dL (0.0-1.4); BUN 17 mg/dL (8-23); BUN/CREATININE RATIO 21 (12-20 (CALC)); CARBON DIOXIDE 27 mmol/l (22-30); CHLORIDE 102 mmol/l (95-108); CREATININE 0.8 mg/dL (0.7-1.3); GFR > 60 ML/MIN (>=60 (CALC)); GFR FOR AFR.AMER. > 60 ML/MIN (>=60 (CALC)); HDL CHOLESTEROL 49 mg/dL (>=40); POTASSIUM 4.4 mmol/l (3.5-5.1); SGOT/AST 20 u/l (19-48); SODIUM 139 mmol/l (137-146); TOTAL PROTEIN 6.6 g/dL (6.3-8.2); TOTAL TRIGLYCERIDES 63 mg/dl (30-149); VLDL CHOLESTROL 13 mg/dl (0-38 (CALC))
[2018-07-03 06:19] LABS: ALBUMIN 3.8 g/dL (3.2-5.0); CALCULATED LDLCHOLESTEROL 67 mg/dL (62-129 (CALC)); CHOLESTEROL HDL RATIO 2.6 (<4.4 (CALC)); TOTAL CHOLESTEROL 129 mg/dl (0-199)
--- NOTE | 2018-07-03 07:00 | NUR ---
REPORT RECEIVED FROM BHAVANI JARRELL;PT RESTING IN SEMI FOWLERS POSITION;INTRODUCED SELF TO PT AND POC DISCUSSED;RESPIRATIONS SHALLOW ON O2 @ 3L VIA NC PER ORDER;PT DENIES ANY CURRENT PAIN OR DISCOMFORTS;IV FLUIDS INFUSING WELL TO LEFT HAND;PT ENCOURAGED TO CALL FOR ASSISTANCE IF NEEDED;FALL PRECAUTIONS IN PLACE WITH CALL LIGHT IN REACH;WILL CONTINUE TO MONITOR
--- NOTE | 2018-07-03 09:00 | NUR ---
AT BEDSIDE DISCUSSING POC.
--- NOTE | 2018-07-03 10:00 | NUR ---
PT RESTING IN SEMI FOWLERS POSITION;VS OBTAINED AND ASSESSMENT COMPLETED;PT DENIES ANY CURRENT PAIN OR DISCOMFORTS,PAIN SCALE AND REPORTING EDUCATED;RESPIRATIONS SHALLOW ON RA, O2 @ 3L AT BEDSIDE NEEDED;NON-PRODUCTIVE COUGH NOTED;ABDOMEN DISTENDED/SOFT ON PALPATION AND ACTIVE IN ALL 4 QUADRANTS;WEAK PEDAL PULSES WITH +3 EDEMA NOTED TO BLE, ENCOURAGED ELEVATION;#22G TO LEFT HAND INFUSING D5 1/2 NS @ 75ML/HR PER ORDER;FRESH COFFEE PROVIDED PER REQUEST;PT DENIES ANY ADDITIONAL NEEDS AT THIS TIME AND IS ENCOURAGED TO CALL FOR ASSISTANCE IF NEEDED;FALL PRECAUTIONS IN PLACE WITH BED IN THE LOWEST POSITION;CALL LIGHT IN REACH;WILL CONTINUE TO MONITOR
[2018-07-03 10:08] VITALS: BP 126/74
--- NOTE | 2018-07-03 10:20 | NUR ---
RADIOLOGY AT BEDSIDE
--- NOTE | 2018-07-03 12:35 | NUR ---
PT RESTING IN SEMI FOWLERS POSITION;LINENS & GOWN CHANGED AFTER COFFEE SPILL;RESPIRATIONS SHALLOW ON RA;PT DENIES ANY CURRENT PAIN OR NEEDS;IV SITE REMAINS PATENT TO LEFT HAND INFUSING FLUIDS WITH EASE;ASSESSMENT UNCHANGED AT THIS TIME;ENCOURAGED TO CALL FOR ASSISTANCE IF NEEDED;FALL PRECAUTIONS IN PLACE WITH CALL LIGHT IN REACH;WILL CONTINUE TO MONITOR
--- NOTE | 2018-07-03 14:22 | NUR ---
PT REPORTS PAIN RATING 8/10 TO BLE AND REQUESTS PAIN MEDICATION;PT MEDICATED WITH PRN DILAUDID 2MG PO AT THIS TIME;PT DENIES ANY ADDITIONAL NEEDS;WILL MONITOR FOR EFFECTIVENESS
--- NOTE | 2018-07-03 15:35 | NUR ---
PT APPEARS TO BE SLEEPING IN SEMI FOWLERS POSITION;NO S/S OF DISTRESS NOTED;RESPIRATIONS APPEAR EVEN AND UNLABORED ON RA;IV FLUIDS INFUSING WELL TO LEFT HAND;FALL PRECAUTIONS IN PLACE WITH BED IN THE LOWEST POSITION AND CALL LIGHT IN REACH;WILL CONTINUE TO MONITOR
[2018-07-03 17:31] VITALS: BP 118/67
[2018-07-03 19:00] VITALS: BP 140/67
--- NOTE | 2018-07-03 19:46 | NUR ---
ASSESSMENT COMPLETED; PT. SITTING UP IN BED WATCHING TV; NO DISTRESS NOTED; UPDATED WITH POC; VERBALIZES UNDERSTANDING; PT. REQUESTING EYE GTTS FOR DRY EYES AND LAXATIVE AND OR SUPPOSITORY TO ASSIST WITH BM; WILL CALL MD FOR FURTHER ORDERS; IV SITE PATENT AND ORDERED IVF INFUSING; ORDERED ZITHROMAX HUNG; SNACK PROVIDED; ENCOURAGED TO CALL FOR ANY NEEDS; CALL LIGHT IS IN REACH; WILL CONTINUE TO MONITOR.
--- NOTE | 2018-07-03 20:59 | NUR ---
PT. DOWN TO CT VIA STRETCHER ACCOMPANIED BY X2 CNAS.
--- NOTE | 2018-07-03 23:50 | NUR ---
IV SITE VERY MINIMAL LEAKING AT SITE; NO REDNESS OR SWELLING NOTED; PT. DECLINES WANTING THIS ELECTRICAL LINEMAN TO PLACE NEW IV SITE; PT. REPORTS HE MAY GO HOME TOMORROW SO HE WANTS TO WAIT AND SEE; PT. IS INSTRUCTED IF LEAKING PERSISTS OR WORSENS THIS ELECTRICAL LINEMAN WILL NEED TO PLACE NEW IV SITE; WILL CONTINUE TO MONITOR. URINAL EMPTIED; CALL LIGHT IS IN REACH.
--- NOTE | 2018-07-04 02:05 | NUR ---
PT. RESTING IN BED WITH NO DISTRESS NOTED; URINAL EMPTIED OF 200MLS OF DARK YELLOW URINE; IV SITE PATENT; WILL CONTINUE TO MONITOR. DENIES NEEDS; CALL LIGHT IS IN REACH.
[2018-07-04 04:02] VITALS: BP 152/73
[2018-07-04 05:01] LABS: HEMATOCRIT 40.9 % (39.0-50.0); HEMOGLOBIN 13.4 g/dl (14.0-18.0); MEAN CELL VOLUME 90.9 fL CALC (80.0-100.0); MEAN CORPUSCULAR HGB 29.8 pG CALC (26.0-32.0); MEAN CORPUSCULAR HGB CONC 32.8 g/L CALC (32.0-36.0); NEUT# 7.56 thou/uL (1.82-7.42); RED BLOOD COUNT 4.5 mill/uL (4.70-6.10); RED CELL DISTRI WIDTH 14.4 % (11.5-15.5)
[2018-07-04 05:10] LABS: ALBUMIN 3.5 g/dL (3.2-5.0); ALKALINE PHOSPHATASE 76 u/l (38-126); ANION GAP 13 (6-22 (CALC)); BILIRUBIN, TOTAL 0.2 mg/dL (0.0-1.4); BUN 19 mg/dL (8-23); BUN/CREATININE RATIO 25 (12-20 (CALC)); CARBON DIOXIDE 26 mmol/l (22-30); CHLORIDE 105 mmol/l (95-108); CREATININE 0.8 mg/dL (0.7-1.3); GFR > 60 ML/MIN (>=60 (CALC)); GFR FOR AFR.AMER. > 60 ML/MIN (>=60 (CALC)); POTASSIUM 4.1 mmol/l (3.5-5.1); SGOT/AST 19 u/l (19-48); SODIUM 140 mmol/l (137-146); TOTAL PROTEIN 6.2 g/dL (6.3-8.2)
--- NOTE | 2018-07-04 05:39 | NUR ---
PT. C/O RIGHT FLANK PAIN AND BLE PAIN 12/17; MEDICATED WITH ORDERED DILAUDID PO; PT. REPORTS THE PAIN FEELS THOUGH HE MAY HAVE A KIDNEY STONE, AND REPORTS HE HAS HAD ONE IN THE PAST; INSTRUCTED PT. TO DISCUSS THIS WITH THIS AM UPON ROUNDS; ENCOURAGED ORAL FLUIDS AND CRANBERRY JUICE PROVIDED; PT. VERBALIZES UNDERSTANDING; PT. STILL WITH NO BM; THIS INVENTORY CONTROL CLERK OFFERED PRN SUPPOSITORY, AND PT. REPORTS HE DOES NOT WANT IT AT THIS TIME AND WILL WAIT UNTIL LATER ON IN DAY; ALSO REPORTS THAT HE WOULD LIKE TO TRY AND GET MORE SLEEP; ENCOURAGED TO CALL FOR ANY NEEDS; CALL LIGHT IS IN REACH; WILL CONTINUE TO MONITOR.
--- NOTE | 2018-07-04 07:00 | NUR ---
PT REPORT RECIEVED FROM BHAVANI JARRELL. PT RESTING. NO S/S OF DISTRESS. CALL LIGHT IN REACH. WILL CONTINUE TO MONITOR.
[2018-07-04 09:18] VITALS: BP 140/64
--- NOTE | 2018-07-04 09:18 | NUR ---
PT A/O X3. SPEECH IS CLEAR. PT REPORTS PRODUCTIVE COUGH; WHITE AND THICK. RESP EVEN AND UNLABORED. LUNG SOUNDS CLEAR. O2 @2L AT BEDSIDE. STRONG RADIAL AND PEDAL PULSES. #22 LH IV REMOVED DUE TO OCCLUSION. CATHETER INTACT. BOWEL SOUNDS ACTIVE X4. +2 EDEMA NOTED TO BLE. ENCOURAGED ELEVATION. SKIN INTACT. PT DENIES ANY PAIN OR NEEDS. POC DISCUSSED. SAFETY PRECAUTIONS IN PLACE. CALL LIGHT IN REACH. WILL CONTINUE TO MONITOR.
--- NOTE | 2018-07-04 11:41 | NUR ---
PT GETTING WASHED UP AT SIDE OF BED W/ ASSISTANCE OF GUEST ADVISOR. PT C/O LOWER EXTREMITY PAIN. 9 OUT OF 10 ON PAIN SCALE. MEDICATED W/ 2MG DILAUDID PO. REPOSITIONED FOR COMFORT. PT DENIES ANY FURTHER NEEDS. CALL LIGHT IN REACH. WILL CONTINUE TO MONITOR.
--- NOTE | 2018-07-04 16:11 | NUR ---
PT WATCHING TELEVISION. NO C/O PAIN OR NEEDS. CALL LIGHT IN REACH. WILL CONTINUE TO MONITOR.
[2018-07-04 16:24] VITALS: BP 140/78
--- NOTE | 2018-07-04 19:20 | NUR ---
PT TALKING ON CELL PHONE, NO S/O DISTRESS AT THIS TIME. WILL FOLLOW-UP W/ASSESSMENT AND MEDICATIONS ORDERED.
[2018-07-04 20:10] VITALS: BP 152/87
--- NOTE | 2018-07-04 21:45 | NUR ---
PT ASSISTED TO RESTROOM, HE IS ASKING TO SIT FOR A WHILE IN ATTEMPT TO HAVE A BM. HE HAS BEEN OFFERED SUPPOSITORY, BUT WANTED TO ATTEMPT TO HAVE ONE ON HIS OWN FIRST. WILL CONTINUE TO MONITOR AND MEDICATE NEEDED AND ORDERS PROVIDE. DENIES ANY NEEDS AT THIS TIME, PT ENCOURAGED TO PULL RED CORD WHEN HE NEEDS ASSISTANCE.
--- NOTE | 2018-07-04 23:00 | NUR ---
PT ASSISTED TO BED AND MEDICATED ORDERS PROVIDE. RESPIRATROY IN W/PT AT THIS TIME.
--- NOTE | 2018-07-05 02:09 | NUR ---
PT IV FLUIDS REPLENISHED AT THIS TIME. URINEAL EMPTIED OF 400CC OF CLEAR YELLOW URINE. DENIES ANY OTHER NEEDS, CALL LIGHT NEXT TO HAND.
[2018-07-05 05:01] VITALS: BP 142/85
[2018-07-05 05:15] LABS: HEMATOCRIT 43.1 % (39.0-50.0); HEMOGLOBIN 13.9 g/dl (14.0-18.0); IMMATURE GRANULOCYTES 2.1 % (0.0-5.0); MEAN CELL VOLUME 91.9 fL CALC (80.0-100.0); MEAN CORPUSCULAR HGB 29.6 pG CALC (26.0-32.0); MEAN CORPUSCULAR HGB CONC 32.3 g/L CALC (32.0-36.0); NEUT# 4.86 thou/uL (1.82-7.42); RED BLOOD COUNT 4.69 mill/uL (4.70-6.10); RED CELL DISTRI WIDTH 14.7 % (11.5-15.5)
[2018-07-05 05:28] LABS: ANION GAP 13 (6-22 (CALC)); BUN 22 mg/dL (8-23); BUN/CREATININE RATIO 27 (12-20 (CALC)); CARBON DIOXIDE 26 mmol/l (22-30); CHLORIDE 105 mmol/l (95-108); CREATININE 0.8 mg/dL (0.7-1.3); GFR > 60 ML/MIN (>=60 (CALC)); GFR FOR AFR.AMER. > 60 ML/MIN (>=60 (CALC)); POTASSIUM 4.6 mmol/l (3.5-5.1); SODIUM 139 mmol/l (137-146)
--- NOTE | 2018-07-05 06:20 | NUR ---
PT MEDICATED FOR PAIN AT THIS TIME. PT REFUSED SUPPOSITORY AT THIS TIME REPORTING THAT HE IS HURTING AND STILL TIRED. PT ENCOURAGED TO CALL IF ANY NEEDS ARISE.
--- NOTE | 2018-07-05 07:00 | NUR ---
PT REPORT RECIEVED FROM BHAVANI GAN. PT RESTING. NO S/S OF DISTRESS. ETIENNE LIGHT IN REACH. WILL CONTINUE TO MONITOR.
[2018-07-05 08:13] VITALS: BP 144/76
--- NOTE | 2018-07-05 08:13 | NUR ---
PT A/O X3. SPEECH IS CLEAR. RESP EVEN AND UNLABORED. LUNG SOUNDS CLEAR. BOWEL SOUNDS ACTIVE X4. STRONG RADIAL AND PEDAL PULSES. #22 RH D5 1/2 @75. SITE APPEARS HEALTHY. +2 EDEMA TO BLE; ENCOURAGED ELEVATION. SKIN INTACT. PT DENIES ANY PAIN OR NEEDS. POC DISCUSSED. SAFETY PRECAUTIONS IN PLACE. CALL LIGHT IN REACH. WILL CONTINUE TO MONITOR.
--- NOTE | 2018-07-05 12:05 | NUR ---
PT SLEEPING IN BED. NO C/O PAIN OR NEEDS. CALL LIGHT IN REACH. WILL CONTINUE TO MONITOR.
--- NOTE | 2018-07-05 16:04 | NUR ---
PT RESTING IN BED. NO C/O PAIN OR NEEDS. IV FLUIDS INFUSING FREELY. CALL LIGHT IN REACH. WILL CONTINUE TO MONITOR.
[2018-07-05 16:58] VITALS: BP 124/73
--- NOTE | 2018-07-05 17:30 | NUR ---
DR. GREGORIO CALLED IN REGARDS TO PT NOT RECIEVING PICC LINE TODAY. PER MD; ASK PT IF HE WANTS TO GO HOME TODAY IF SO WRITE A VERBAL D/C ORDER W/ HOME HEALTH AND PT TO RECIEVE IV ABT THROUGH IV THERAPY STARTING TOMORROW AND HE WILL PUT IN DISCHARGE ORDERS SOON HE GETS TO A COMPUTER. IF NOT, PT STAYS ANOTHER NIGHT AND WILL SEND HOME TOMORROW. DISCUSSED W/ PT HIS OPTIONS. PT WANTS TO GO HOME TONIGHT. HOME HEALTH SET UP DISCUSSED W/ MAIRA FROM CASE MANAGEMENT; HOME HELP IN PLACE. IV THERAPY APPOINTMENT TIME SETUP THROUGH TSERING, FOAM GUN OPERATOR. D/C INSTRUCTIONS AND NEED TO CALL FOR SET UP OF APPOINTMENT FOR PICC INSERTION DISCUSSED W/ PT. NUMBER GIVEN TO CALL. PT STATES UNDERSTANDING. NO QUESTIONS VERBALIZED. D/C ORDERS WROTE IN CHART; FAXED TO REGISTRATION AND IV THERAPY.
--- NOTE | 2018-07-05 18:31 | NUR ---
D/C INSTRUCTIONS AND APPOINTMENT AND NEED TO SET UP PICC LINE INSERTION REINOFRCED W/ PT. PT STATES UNDERSTANDING. IV REMOVED. CATHETER INTACT. PT STATES HE IS GOING TO CALL HIS SHORTLY AND NEEDS ASSISTANCE W/ GETTING DRESSED. AIRCRAFT ENGINE INSTALLER CNAS AWARE.
--- NOTE | 2018-07-05 19:25 | NUR ---
Discharge instructions given. Patient verbalizes understanding of same. Discharged in stable condition via Wheelchair to Home with family. All belongings sent with pt.
[2018-07-06] MEDS ORDERED: ROCEPHIN1 G1 IV (07:22)
== END 2018-07-05 19:25 | disposition home health service (06) ==
LOC: MS2 16:06
PROVIDERS: ADMIT Internal Medicine Geriatric Medicine; ATTEND Internal Medicine Geriatric Medicine
DX: J18.9 Pneumonia, unspecified organism (principal); J47.0 Bronchiectasis with acute lower respiratory infection; F41.1 Generalized anxiety disorder; F32.9 Major depressive disorder, single episode, unspecified; I25.10 Atherosclerotic heart disease of native coronary artery without angina pectoris; I10 Essential (primary) hypertension; G60.0 Hereditary motor and sensory neuropathy; I73.9 Peripheral vascular disease, unspecified; R60.0 Localized edema; Z99.3 Dependence on wheelchair; Z96.89 Presence of other specified functional implants; Z95.0 Presence of cardiac pacemaker
CPT/HCPCS: Q9967

== ENCOUNTER 2018-07-11 10:15 | Observation (INO) | payer MEDICARE ==
[~2018-07-11] VITALS: Ht 177.8 cm; Wt 111.2 kg
[~2018-07-11 10:15] MED LIST changes: +ROCEPHIN1 G1 IV
[2018-07-11 11:00] VITALS: BP 111/69
[2018-07-11 12:30] LABS: URINE BILIRUBIN - DIPSTICK NEGATIVE (NEGATIVE); URINE BLOOD DIPSTICK NEGATIVE (NEGATIVE); URINE COLOR YELLOW; URINE GLUCOSE - DIPSTICK NEGATIVE (NEGATIVE); URINE KETONE NEGATIVE (NEGATIVE); URINE LEUK ESTERASE NEGATIVE (NEGATIVE); URINE NITRITE - DIPSTICK NEGATIVE (Negative); URINE PH 6.5 (4.5-8.0); URINE PROTEIN - DIPSTICK NEGATIVE (NEG-TRACE); URINE UROBILINOGEN - DIPSTICK 0.2 E.U./dL (0.2)
[2018-07-11 12:35] LABS: HEMATOCRIT 44.3 % (39.0-50.0); HEMOGLOBIN 14.1 g/dl (14.0-18.0); IMMATURE GRANULOCYTES 2.6 % (0.0-5.0); MEAN CELL VOLUME 93.1 fL CALC (80.0-100.0); MEAN CORPUSCULAR HGB 29.6 pG CALC (26.0-32.0); MEAN CORPUSCULAR HGB CONC 31.8 g/L CALC (32.0-36.0); NEUT# 3.77 thou/uL (1.82-7.42); RED BLOOD COUNT 4.76 mill/uL (4.70-6.10); RED CELL DISTRI WIDTH 14.4 % (11.5-15.5)
[2018-07-11 12:42] LABS: ANION GAP 16 (6-22 (CALC)); BUN 26 mg/dL (8-23); BUN/CREATININE RATIO 26 (12-20 (CALC)); CARBON DIOXIDE 27 mmol/l (22-30); CHLORIDE 102 mmol/l (95-108); GFR > 60 ML/MIN (>=60 (CALC)); GFR FOR AFR.AMER. > 60 ML/MIN (>=60 (CALC)); POTASSIUM 4.4 mmol/l (3.5-5.1); SODIUM 140 mmol/l (137-146)
[2018-07-11] MEDS ORDERED: DOCUSATE CAL240 MG (13:58)
[2018-07-11 15:39] VITALS: BP 106/57
[2018-07-11 19:00] VITALS: BP 128/67
[2018-07-12] VITALS (7 sets, daily range): BP systolic 101–134; BP diastolic 53–69
[2018-07-12 05:37] LABS: HEMATOCRIT 42.3 % (39.0-50.0); HEMOGLOBIN 13.6 g/dl (14.0-18.0); IMMATURE GRANULOCYTES 2.2 % (0.0-5.0); MEAN CELL VOLUME 92.4 fL CALC (80.0-100.0); MEAN CORPUSCULAR HGB 29.7 pG CALC (26.0-32.0); MEAN CORPUSCULAR HGB CONC 32.2 g/L CALC (32.0-36.0); NEUT# 4.51 thou/uL (1.82-7.42); RED BLOOD COUNT 4.58 mill/uL (4.70-6.10); RED CELL DISTRI WIDTH 14.5 % (11.5-15.5)
[2018-07-12 05:53] LABS: ALBUMIN 3.5 g/dL (3.2-5.0); ALKALINE PHOSPHATASE 75 u/l (38-126); ANION GAP 14 (6-22 (CALC)); BILIRUBIN, TOTAL 0.4 mg/dL (0.0-1.4); BUN 24 mg/dL (8-23); BUN/CREATININE RATIO 27 (12-20 (CALC)); CARBON DIOXIDE 27 mmol/l (22-30); CHLORIDE 104 mmol/l (95-108); CREATININE 0.9 mg/dL (0.7-1.3); GFR > 60 ML/MIN (>=60 (CALC)); GFR FOR AFR.AMER. > 60 ML/MIN (>=60 (CALC)); POTASSIUM 4.1 mmol/l (3.5-5.1); SGOT/AST 23 u/l (19-48); SODIUM 140 mmol/l (137-146); TOTAL PROTEIN 6.3 g/dL (6.3-8.2)
[2018-07-13 04:05] VITALS: BP 98/61
[2018-07-13 08:56] VITALS: BP 136/60
[2018-07-13] MEDS ORDERED: ROCEPHIN1 G1 IV (08:58)
[2018-07-13 08:59] VITALS: BP 136/60
== END 2018-07-13 10:49 | disposition home or self-care (01) ==
LOC: MS2 10:15
PROVIDERS: ADMIT Internal Medicine Geriatric Medicine; ATTEND Internal Medicine Geriatric Medicine
DX: I70.203 Unspecified atherosclerosis of native arteries of extremities, bilateral legs (principal); J18.9 Pneumonia, unspecified organism; J44.0 Chronic obstructive pulmonary disease with (acute) lower respiratory infection; G60.0 Hereditary motor and sensory neuropathy; I10 Essential (primary) hypertension; I25.10 Atherosclerotic heart disease of native coronary artery without angina pectoris; K59.03 Drug induced constipation; T40.2X5A Adverse effect of other opioids, initial encounter; F11.20 Opioid dependence, uncomplicated; M19.90 Unspecified osteoarthritis, unspecified site; Z99.3 Dependence on wheelchair; Z95.0 Presence of cardiac pacemaker; Z96.89 Presence of other specified functional implants; M79.672 Pain in left foot; M79.671 Pain in right foot; M79.89 Other specified soft tissue disorders
CPT/HCPCS: Q9967

== ENCOUNTER 2018-11-04 15:57 | Observation (INO) | payer MEDICARE ==
[~2018-11-04] VITALS: Ht 177.8 cm; Wt 108.0 kg
[~2018-11-04 15:57] MED LIST changes: +DOCUSATE CAL240 MG
[2018-11-04 16:20] VITALS: BP 115/57
--- NOTE | 2018-11-04 16:20 | NUR ---
PT TO ICU BED 3 VIA MOTORIZED WHEELCHAIR ACCOMPANIED BY DAUGHTER. PT IS ALERT AND ORIENTED X3. ADMISSION ASSESSMENT COMPLETED AT THIS TIME. IV STARTED #22 RIGHT HAND X1 ATTEMPT. PT TOLERATED WELL. ORIENTED TO ROOM AND UNIT. INSTRUCTED PT THAT WE WILL BE NEEDING A URINE SPECIMEN AND SPUTUM SPECIMEN. SPECIMEN CUPS AT BEDSIDE. PT VERBALIZED UNDERSTANDING. CALL LIGHT IN REACH. WILL CONTINUE OT MONITOR.
--- NOTE | 2018-11-04 16:30 | NUR ---
LAB AT BEDSIDE TO DRAW ADMIT LABS
[2018-11-04 16:43] LABS: IMMATURE GRANULOCYTES 0.7 % (0.0-5.0); MEAN CELL VOLUME 92.4 fL CALC (80.0-100.0); MEAN CORPUSCULAR HGB CONC 32.5 g/L CALC (32.0-36.0); NEUT# 3.92 thou/uL (1.82-7.42); RED BLOOD COUNT 5.66 mill/uL (4.70-6.10); RED CELL DISTRI WIDTH 14.3 % (11.5-15.5)
[2018-11-04 16:49] LABS: HEMATOCRIT 52.3 % (39.0-50.0)
--- NOTE | 2018-11-04 16:52 | NUR ---
RADIOLOGY AT BEDSIDE AT THIS TIME FOR CXR
--- NOTE | 2018-11-04 16:57 | NUR ---
PHARMACY AT BEDSIDE TO COMPLETE MED REC
[2018-11-04 17:03] LABS: ANION GAP 14 (6-22 (CALC)); BUN 12 mg/dL (8-23); BUN/CREATININE RATIO 13 (12-20 (CALC)); CARBON DIOXIDE 31 mmol/l (22-30); CHLORIDE 99 mmol/l (95-108); CREATININE 0.9 mg/dL (0.7-1.3); GFR > 60 ML/MIN (>=60 (CALC)); GFR FOR AFR.AMER. > 60 ML/MIN (>=60 (CALC)); POTASSIUM 3.8 mmol/l (3.5-5.1); SODIUM 140 mmol/l (137-146)
[2018-11-04] MEDS ORDERED: DILAUDID4 MG PO (17:13)
[2018-11-04] MEDS ORDERED: ALBUTEROL SUL0.083 % IN (17:14)
[2018-11-04] MEDS ORDERED: LOPRESSOR50 M1 PO (17:15)
[2018-11-04] MEDS ORDERED: POTASSIUM99 MG PO (17:17)
[2018-11-04] MEDS ORDERED: TESTOST CYP200 MG/ML IM (17:19)
--- NOTE | 2018-11-04 17:25 | NUR ---
RT AT BEDSIDE FOR EKG AND ABG
--- NOTE | 2018-11-04 18:03 | NUR ---
PT SET UP FOR PM MEAL
[2018-11-04 19:13] LABS: URINE BILIRUBIN - DIPSTICK NEGATIVE (NEGATIVE); URINE BLOOD DIPSTICK NEGATIVE (NEGATIVE); URINE CLARITY CLEAR; URINE COLOR YELLOW; URINE GLUCOSE - DIPSTICK NEGATIVE (NEGATIVE); URINE KETONE NEGATIVE (NEGATIVE); URINE LEUK ESTERASE TRACE (Negative); URINE NITRITE - DIPSTICK NEGATIVE (Negative); URINE PROTEIN - DIPSTICK TRACE mg/dL (NEG-TRACE); URINE UROBILINOGEN - DIPSTICK 0.2 E.U./dL (0.2)
[2018-11-04 20:00] VITALS: BP 138/69
--- NOTE | 2018-11-04 20:23 | NUR ---
SCD'S APPLIED AT THIS TIME. PT. LEGS REPOSITINED FOR COMFORT. HEELS OFFLOADED AND HEEL PROTECTORS APPLIED AT THIS TIME. WILL CONTINUE TO CLOSELY MONITOR.
--- NOTE | 2018-11-04 21:25 | NUR ---
PT. MEDICATED PER PHYSICIAN ORDERS. LASIX HELD PER PATIENT REQUEST. HE STATES HE TAKES HIS SECOND LASIX IN THE AFTERNOON SO HE DOES NOT HAVE TO URINATE ALL NIGHT. REFUSES LASIX TONIGHT. PT. HAS BOTH METOPROLOL AND COREG ON JUN FOR TONIGHT. WHEN LOOKING BACK AT PATIENT MEDICATION FILL IN PATIENT MED RECONCILLATION DOES NOT SHOW HE FILLS THIS MED, BUT DOES FILL COREG. COREG GIVEN AT THIS TIME AND METOPROLOL HELD. WILL CLARIFY WITH MD IN THE AM.
--- NOTE | 2018-11-04 21:43 | NUR ---
NEB TREATMENT IN PROGRESS AT THIS TIME.
[2018-11-05] VITALS (7 sets, daily range): BP systolic 91–127; BP diastolic 48–67
--- NOTE | 2018-11-05 01:05 | NUR ---
PT. MEDICATED FOR PAIN LEVEL 6/10 TO LOWER EXTREMITIES. RT AT BEDSIDE TO ADMINISTER NEB TREATMENT. PT. DENIES OTHER COMPLAINTS OR NEEDS AT THIS TIME. RESPS REMAIN EVEN AND UNLABORED. REMAINS AFEBRILE.
[2018-11-05 04:47] LABS: HEMATOCRIT 49.9 % (39.0-50.0); HEMOGLOBIN 15.9 g/dl (14.0-18.0); IMMATURE GRANULOCYTES 0.6 % (0.0-5.0); MEAN CELL VOLUME 93.1 fL CALC (80.0-100.0); MEAN CORPUSCULAR HGB 29.7 pG CALC (26.0-32.0); MEAN CORPUSCULAR HGB CONC 31.9 g/L CALC (32.0-36.0); NEUT# 4.05 thou/uL (1.82-7.42); RED BLOOD COUNT 5.36 mill/uL (4.70-6.10); RED CELL DISTRI WIDTH 14.3 % (11.5-15.5)
--- NOTE | 2018-11-05 05:00 | NUR ---
RT. AT [facility] FOR NEB TREATMENT. PT. REMAINS ROUSABLE TO LIGHT VERBAL STIMULI. CALL LIGHT REMANS WITHIN REACH. SKIN REMAINS COOL AND DRY. RESPS EVEN AND UNLABORED. BP STABLE. WILL CONTINUE TO MONITOR.
[2018-11-05 06:04] LABS: ALBUMIN 3.8 g/dL (3.2-5.0); ALKALINE PHOSPHATASE 74 u/l (38-126); ANION GAP 14 (6-22 (CALC)); BUN 15 mg/dL (8-23); BUN/CREATININE RATIO 18 (12-20 (CALC)); CARBON DIOXIDE 25 mmol/l (22-30); CHLORIDE 102 mmol/l (95-108); CREATININE 0.8 mg/dL (0.7-1.3); GFR > 60 ML/MIN (>=60 (CALC)); GFR FOR AFR.AMER. > 60 ML/MIN (>=60 (CALC)); POTASSIUM 4.2 mmol/l (3.5-5.1); SGOT/AST 31 u/l (19-48); SODIUM 137 mmol/l (137-146); TOTAL PROTEIN 7.1 g/dL (6.3-8.2)
[2018-11-05 06:07] LABS: BILIRUBIN, TOTAL 0.7 mg/dL (0.0-1.4)
--- NOTE | 2018-11-05 07:00 | NUR ---
PT RESTING IN BED WITH EYES CLOSED. AROUSES EASILY TO VERBAL STIMULI. PT IS ALERT AND ORIENTED X3. SHIFT ASSESSMENT COMPLETED AT THIS TIME. CALL LIGHT IN REACH. WILL CONTINUE TO MONITOR.
--- NOTE | 2018-11-05 08:45 | NUR ---
PT TO CT VIA STRETCHER ACCOMPANIED BY NURSE.
--- NOTE | 2018-11-05 09:03 | NUR ---
PT RETURNED TO ICU ROOM 3 VIA STRETCHER TRANSFERRED BACK TO BED PLACED BACK ON MONITOR.
--- NOTE | 2018-11-05 09:09 | NUR ---
SPOKE WITH DR GREGORIO RECEIVED ORDERS TO DC MEDICATIONS. VERBAL ORDERS WROTE.
--- NOTE | 2018-11-05 11:47 | NUR ---
PT SET UP FOR NOON MEAL. ASSESSMENT REMAINS UNCHANGED. CALL LIGHT IN REACH. WILL CONTINUE TO MONITOR.
--- NOTE | 2018-11-05 14:30 | NUR ---
REPORT CALLED TO SUSAN MARRUFO ON MED SURG
--- NOTE | 2018-11-05 14:50 | NUR ---
PT TRANSFERRED TO [facility] ROOM 289 VIA BED. ALL BELONGINGS SENT WITH PATIENT. PATIENT TOLERATED TRANSFER WELL.
--- NOTE | 2018-11-05 14:51 | NUR ---
PT ARRIVED TO MED/SURG ROOM 289 IN STABLE CONDITION VIA HOSPITAL BED ACCOMPANIED BY BHAVANI WAYNE;PT A&O X4, VS OBTAINED AND ASSESSMENT COMPLETED;PT REPORTS THAT BLE PAIN HAS DECREASED SINCE PAIN MEDICATION ADMINISTRATION, PAIN SCALE AND REPORTING EDUCATED;RESPIRATIONS EVEN AND UNLABORED ON O2 @ 3L VIA NC,NON-PRODUCTIVE COUGH NOTED;ABDOMEN DISTENDED/SOFT ON PALPATION AND ACTIVE IN ALL 4 QUADRANTS, RE-EDUCATED PT ON THE NEED FOR A STOOL SAMPLE;WEEK PEDAL PULSES WITH EDEMA NOTED, ENCOURAGED ELEVATION OF BLE;SKIN INTACT;#22G TO RIGHT HAND INFUSING D5 1/2 NS @ 75 ML/HR PER ORDER,SITE APPEARS HEALTHY;TELE MONITORING PLACED ON PT;PT DENIES ANY ADDITIONAL NEEDS AT THIS TIME AND IS ENCOURAGED TO CALL FOR ASSISTANCE IF NEEDED;FALL PRECAUTIONS IN PLACE WITH BED IN THE LOWEST POSITION AND CALL LIGHT IN REACH;WILL CONTINUE TO MONITOR
--- NOTE | 2018-11-05 19:30 | NUR ---
PATIENT RESTING IN BED WITH O2 VIA NASAL CANNULA IN PLACE. AWAKE ALERT AND ORIENTEDX3. TELE MONITOR IN PLACE. IV SITE TO RIGHT HAND INTACT WITH IVF INFUSING ORDERED. PATIENT VOIDED 300CC OF CLEAR Y ELLOW URINE INURINAL. PATIENT WITH NON-PRODUCTIVE COUGH. SAFETY PRECAUTIONS REINFORCED. CALL LIGHT IN REACH. WILL CONT TO MONITOR.
--- NOTE | 2018-11-05 21:30 | NUR ---
PATIENT RESTING IN BED WITH O2 VIA NASAL CANNULA IN PLACE. TELE MONITOR INPLACE. MEDICATED WITH DILAUDID 4MG PO FOR BLE AND FOOT PAIN. MEDICATED FOR SLEEP WITH RESTORIL 15MG PO. PROVIDED WITH HS SNACK. CALL LIGHT IN REACH. WILL CONT TO MONITOR.
--- NOTE | 2018-11-06 01:00 | NUR ---
PATIENT APPEARS SLEEPING WITH EYES CLOSED. RESP ARE EVEN AND UNLABORED. O2 VIA NASAL CANNULA IN PLACE. TELE MONITOR IN PLACE. CALL LIGHT IN REACH. WILL CONT TO MONITOR.
[2018-11-06 03:55] VITALS: BP 95/55
[2018-11-06 06:25] LABS: HEMATOCRIT 45.4 % (39.0-50.0); HEMOGLOBIN 14.7 g/dl (14.0-18.0); IMMATURE GRANULOCYTES 0.5 % (0.0-5.0); MEAN CELL VOLUME 92.7 fL CALC (80.0-100.0); MEAN CORPUSCULAR HGB CONC 32.4 g/L CALC (32.0-36.0); NEUT# 7.91 thou/uL (1.82-7.42); RED BLOOD COUNT 4.9 mill/uL (4.70-6.10); RED CELL DISTRI WIDTH 14.3 % (11.5-15.5)
[2018-11-06 06:44] LABS: ANION GAP 13 (6-22 (CALC)); BUN 19 mg/dL (8-23); BUN/CREATININE RATIO 21 (12-20 (CALC)); CARBON DIOXIDE 26 mmol/l (22-30); CHLORIDE 103 mmol/l (95-108); CREATININE 0.9 mg/dL (0.7-1.3); GFR > 60 ML/MIN (>=60 (CALC)); GFR FOR AFR.AMER. > 60 ML/MIN (>=60 (CALC)); POTASSIUM 3.5 mmol/l (3.5-5.1); SODIUM 139 mmol/l (137-146)
--- NOTE | 2018-11-06 08:20 | NUR ---
PT AWAKE RESTING IN BED. ALERT AND ORIENTED X4. VSS. RESP EVEN AND UNLABORED. PT HAS DIMINISHED BREATH SOUNDS. ABD SOFT WITH BOWEL SOUNDS PRESENT. PT DOES HAVE A +3 BILAT LOWER EXT EDEMA WITH DISCOLORATION NOTED. IV SITE PATENT IN RT HAND. TELE SR. PT OFFERS NO COMPLAINTS. CALL ALVAREZ WITHIN REACH.
[2018-11-06 08:21] VITALS: BP 108/62
[2018-11-06 11:05] VITALS: BP 118/62
--- NOTE | 2018-11-06 12:30 | NUR ---
PT RESTING IN BED WATCHING T.V. IV SITE PATENT. RESP EVEN AND UNLABORED. OFFERS NO COMPLAINTS. CALL ALVAREZ WITHIN REACH.
[2018-11-06 15:32] VITALS: BP 152/79
[2018-11-06] MEDS ORDERED: PREDNISONE20 MG PO (15:59)
[2018-11-06] MEDS ORDERED: LEVAQUIN750 MG PO (15:59)
--- NOTE | 2018-11-06 18:05 | NUR ---
IV SITE D/NIRAV . RESP EVEN AND UNLABORED. REVIEWED DISCHARGE MEDS WITH PT AND EXPLAINED PREDNISONE TAPER AND LEVAQUIN P.O DAILY. DISCHARGE TEACHING COMPLETED. MAIRA FROM CASE MANAGEMENT SPOKE WITH PT REGARDING HOME HEALTH. E.R CALLED AND INFORMED TELE D/NIRAV. PT HAS NO QUESTIONS REGARDING DISCHARGE. DISCHARGE PACKET GIVEN. PT CALLING HIS DAUGHTER FOR A RIDE. RUBBER WASHER ASSISTING PT WITH DRESSING. CALL ALVAREZ WITHIN REACH.
--- NOTE | 2018-11-06 18:32 | NUR ---
PT DISCHARGE VIA HIS SCOOTER WITH HIS BELONGINGS AND HIS DAUGHTER WITH HIM. INSTRUCTED PTS DAUGHTER REGARDING PRESCRIPTIONS. PT DISCHARGED IN STABLE CONDITION.
== END 2018-11-06 18:30 | disposition home or self-care (01) ==
LOC: ICU 15:57 → MS2 11-05 15:00
PROVIDERS: ADMIT Internal Medicine Geriatric Medicine; ATTEND Internal Medicine Geriatric Medicine
DX: J20.9 Acute bronchitis, unspecified (principal); J44.0 Chronic obstructive pulmonary disease with (acute) lower respiratory infection; I10 Essential (primary) hypertension; E78.5 Hyperlipidemia, unspecified; I25.10 Atherosclerotic heart disease of native coronary artery without angina pectoris; I73.9 Peripheral vascular disease, unspecified; R60.0 Localized edema; G60.0 Hereditary motor and sensory neuropathy; Z96.89 Presence of other specified functional implants; Z95.0 Presence of cardiac pacemaker; Z99.3 Dependence on wheelchair
CPT/HCPCS: Q9967

== ENCOUNTER 2019-01-31 11:31 | Emergency (ER) | payer MEDICARE ==
[~2019-01-31] VITALS: Ht 177.8 cm; Wt 95.9 kg
[~2019-01-31 11:31] MED LIST changes: +ALBUTEROL SUL0.083 % IN; +POTASSIUM99 MG PO; +PREDNISONE20 MG PO; +TESTOST CYP200 MG/ML IM
[2019-01-31] MEDS ORDERED: ELIQUIS5 MG PO (12:01)
[2019-01-31 13:40] LABS: IMMATURE GRANULOCYTES 0.7 % (0.0-5.0); MEAN CELL VOLUME 90.6 fL CALC (80.0-100.0); MEAN CORPUSCULAR HGB 29.2 pG CALC (26.0-32.0); MEAN CORPUSCULAR HGB CONC 32.2 g/L CALC (32.0-36.0); NEUT# 4.06 thou/uL (1.82-7.42); RED BLOOD COUNT 6.06 mill/uL (4.70-6.10); RED CELL DISTRI WIDTH 17.3 % (11.5-15.5)
[2019-01-31 13:50] LABS: HEMOGLOBIN 17.7 g/dl (14.0-18.0)
[2019-01-31 13:51] LABS: HEMATOCRIT 54.9 % (39.0-50.0)
[2019-01-31 14:01] LABS: ALBUMIN 4.5 g/dL (3.2-5.0); ALKALINE PHOSPHATASE 86 u/l (38-126); ANION GAP 16 (6-22 (CALC)); BUN 13 mg/dL (8-23); BUN/CREATININE RATIO 15 (12-20 (CALC)); CARBON DIOXIDE 28 mmol/l (22-30); CHLORIDE 98 mmol/l (95-108); CREATININE 0.8 mg/dL (0.7-1.3); GFR > 60 ML/MIN (>=60 (CALC)); GFR FOR AFR.AMER. > 60 ML/MIN (>=60 (CALC)); POTASSIUM 4.2 mmol/l (3.5-5.1); SGOT/AST 50 u/l (19-48); SODIUM 139 mmol/l (137-146)
[2019-01-31 14:02] LABS: BILIRUBIN, TOTAL 1.1 mg/dL (0.0-1.4)
[2019-01-31] MEDS ORDERED: DOXYCYC MONO100 M2 PO (16:01)
[2019-01-31 17:09] VITALS: BP 156/91
== END 2019-01-31 17:09 | disposition home or self-care (01) ==
LOC: ED 11:31
PROVIDERS: Family Medicine
DX: E87.70 Fluid overload, unspecified (principal); R91.8 Other nonspecific abnormal finding of lung field; I25.10 Atherosclerotic heart disease of native coronary artery without angina pectoris; Z95.1 Presence of aortocoronary bypass graft; Z95.810 Presence of automatic (implantable) cardiac defibrillator

== ENCOUNTER 2022-09-15 06:25 | Inpatient (IN) | payer MEDICARE ==
[~2022-09-15] VITALS: Ht 177.8 cm; Wt 103.8 kg
[2022-09-15] VITALS (18 sets, daily range): BP systolic 100–156; BP diastolic 51–128
[~2022-09-15 06:25] MED LIST changes: +DOXYCYC MONO100 M2 PO; +ELIQUIS5 MG PO
--- NOTE | 2022-09-15 06:25 | NUR ---
PT ARRIVED VIA EMS TO ROOM 9, EKG COMPLETED, PT AOX4, VSS, ON ROOM AIR. MD AT BEDSIDE PUTTING IN ORDERS.
[2022-09-15 07:25] LABS: BASO% 0.3 % (0-3); EOS% 1.6 % (0-8); HEMATOCRIT 45.2 % (39.0-50.0); LYMPH% 14.7 % (15-41); MONO% 12.2 % (2-13); NEUT# 4.91 thou/uL (1.82-7.42); NEUT% 71.2 % (42-76); RED BLOOD COUNT 4.66 mill/uL (4.70-6.10); RED CELL DISTRI WIDTH 13.5 % (11.5-15.5)
[2022-09-15 07:37] LABS: ALBUMIN 4.2 g/dL (3.2-5.0); ALKALINE PHOSPHATASE 77 u/l (38-126); ANION GAP 12 (6-22 (CALC)); BUN 32 mg/dL (8-23); BUN/CREATININE RATIO 34 (12-20 (CALC)); CARBON DIOXIDE 31 mmol/l (22-30); CHLORIDE 102 mmol/l (95-108); CREATININE 0.9 mg/dL (0.7-1.3); GFR FOR AFR.AMER. > 60 ML/MIN (>=60 (CALC)); GFR OTHER RACES > 60 ML/MIN (>=60 (CALC)); POTASSIUM 4.7 mmol/l (3.5-5.1); SGOT/AST 52 u/l (19-48); SODIUM 141 mmol/l (137-146); TOTAL PROTEIN 7.3 g/dL (6.3-8.2)
[2022-09-15 07:39] LABS: BILIRUBIN, TOTAL 0.5 mg/dL (0.2-1.3)
[2022-09-15] MEDS ORDERED: CYMBALTA60 MG PO (07:39)
[2022-09-15] MEDS ORDERED: PROSCAR5 MG PO (07:40)
[2022-09-15] MEDS ORDERED: NEURONTIN300 MG PO (07:41)
[2022-09-15] MEDS ORDERED: LASIX 40 MG TAB40 MG PO (07:43)
--- NOTE | 2022-09-15 07:43 | NUR ---
CHECKED ON PT. NAD AT THIS TIME. CALL LIGHT IS WITHIN REACH OF PT.
--- NOTE | 2022-09-15 08:12 | NUR ---
NEUROVACULAR CHECK ON PT'S BILATERAL LEGS. PEDAL PULSES NOTED WITH DOPPLER AT 90 BPM. ASSISTED PT WITH THE URINAL. 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 PT DENIES FEELING OR INJURY TO THE KNEES AN BELOEW AND STATES THAT THIS IS NORMAL FOR HIM. PT USES A WHEELCHAIR AND SCOOTER AT HOME. PT'S DIO STATES THAT PT WAS DIAGNOSED WITH BRONCHIECTASIS.
[2022-09-15 08:32] LABS: URINE BILIRUBIN - DIPSTICK NEGATIVE (NEGATIVE); URINE BLOOD DIPSTICK SMALL (NEGATIVE); URINE COLOR YELLOW; URINE GLUCOSE - DIPSTICK NEGATIVE (NEGATIVE); URINE KETONE NEGATIVE (NEGATIVE); URINE LEUK ESTERASE NEGATIVE (NEGATIVE); URINE PROTEIN - DIPSTICK 30 mg/dL (NEG-TRACE); URINE UROBILINOGEN - DIPSTICK 0.2 E.U./dL (0.2)
[2022-09-15 08:33] LABS: URINE NITRITE - DIPSTICK NEGATIVE (Negative)
[2022-09-15 08:40] LABS: URINE BACTERIA FEW hpf; URINE RBC 0-2 RBC/hpf (0-5); URINE SQUAMOUS EPITHELIAL CELL FEW EPI/hpf (0-FEW)
[2022-09-15 08:41] LABS: URINE TRANSITIONAL EPI. CELLS FEW hpf
--- NOTE | 2022-09-15 09:14 | NUR ---
CHECKED ON PT . NAD AT THIS TIME. ASSISTED PT WITH URINAL.
--- NOTE | 2022-09-15 11:45 | NUR ---
PT IS RESTING IN STRETCH CURRENTLY.
--- NOTE | 2022-09-15 12:30 | NUR ---
CHECKED ON PT. WAITING FOR A ROOM ASSIGNMENT . NAD AT THIS TIME. PT WAS REPOSITIONED IN BED.
--- NOTE | 2022-09-15 13:47 | NUR ---
REPORT CALLED FOR PT TO [facility] ROOM 261. SARAH BECKHAM TOOK REPORT.
--- NOTE | 2022-09-15 13:54 | NUR ---
PT WAS TRANSPORTED TO [facility] ROOM 261 AND CARE OF PT WAS TAKEN OVER BY SARAH BECKHAM. PT WAS TRANSPORTED WITH A PATENT 20 GAUGE RAC IV, ON 2 LITERS OF OS, WITH TELEMETRY. AND IS ALERT AND ORIENTED X3. NAD AT TIME OF TRANSPORT. PT NEEDS ASSISTANCE WITH TRANSFERING FROM BED TO COMMODE.
--- NOTE | 2022-09-15 14:00 | NUR ---
PATIENT ARRIVED TO FLOOR IN STABLE CONDITION, REPORT RECIEVED PRIOR TO ARRIVAL, PATIENT BASELINE IS ROOM AIR AT HOME, USING 2L NC, USES WHEELCHAIR LEGS ARE IMMOBILE, CONTINENT OF BOWEL AND BLADDER, PERWICK IN PLACE,ABLE TO FEED HIMSELF AND USE CALL LIGHT APPROPIATELY.PATIENT SAFETY PRECATIONS IN PLACE. ON TELEMTRY RUNNING PACED AT 88.
--- NOTE | 2022-09-15 20:23 | NUR ---
patient blood sugar was 146 nurse aware
--- NOTE | 2022-09-15 21:45 | NUR ---
received bedside shift report at start of shift. pt in bed with hob elevated. on 02 via nasal canula. alert and oriented. top bed rails up. bed is locked. call light in reach.
--- NOTE | 2022-09-16 00:16 | NUR ---
PT BECAME SLIGHTLY CONFUSED AFTER TAKING HIS PM MEDICATIONS AND DILAUDID. PT TOOK OFF HIS TELEMETRY LEADS AND PULLED OUT HIS SALINE LOCK AND STATED"iM GOING HOME" PT WAS REORIENTED TO WHY HE IS HERE IN THE HOSPITAL . PT AGREED TO HAVE HIS BACK WINDER PUT BACK ON. HE ALSO AGREEED TO HAVE ANOTHER SALINE LOCK INSERTED. NURSING EXTENDER ATTEMPTED IV INSERTION. UNABLE TO COMPLETE AT THIS TIME. PT RESTING/SLEEPING AT THIS TIME. TOP RAILS ARE UP IN BED. BED IS LOCKED AND BED ALARM IS ON.
--- NOTE | 2022-09-16 03:49 | NUR ---
PT SLEPT WELL THIS SHIFT. REMAINS ON 02 VIA NC CONTINUOUS. NEW SALINE LOCK INSERTED LEFT FOREARM. PUREWICK IS DRAINING WELL. ON TELEMETRY PACED ZAK.
--- NOTE | 2022-09-16 04:43 | NUR ---
PT WITH PRODUCTIVE COUGH. THICK YELLOW SPUTUM. REQUESTED HIS RESP TX FOR WHEEZING. MORENA WELL
[2022-09-16 05:20] LABS: HEMATOCRIT 41.7 % (39.0-50.0); HEMOGLOBIN 13.1 g/dl (14.0-18.0); MEAN CELL VOLUME 97.4 fL CALC (80.0-100.0); MEAN CORPUSCULAR HGB 30.6 pG CALC (26.0-32.0); MEAN CORPUSCULAR HGB CONC 31.4 g/dL CAL (32.0-36.0); RED BLOOD COUNT 4.28 mill/uL (4.70-6.10); RED CELL DISTRI WIDTH 13.5 % (11.5-15.5)
--- NOTE | 2022-09-16 05:59 | NUR ---
pt voided via purewick. liliana colored urine. 450cc
[2022-09-16 06:01] LABS: ALBUMIN 3.8 g/dL (3.2-5.0); ALKALINE PHOSPHATASE 68 u/l (38-126); ANION GAP 11 (6-22 (CALC)); BILIRUBIN, TOTAL 0.4 mg/dL (0.2-1.3); BUN 25 mg/dL (8-23); BUN/CREATININE RATIO 34 (12-20 (CALC)); CARBON DIOXIDE 28 mmol/l (22-30); CHLORIDE 104 mmol/l (95-108); CREATININE 0.7 mg/dL (0.7-1.3); GFR FOR AFR.AMER. > 60 ML/MIN (>=60 (CALC)); GFR OTHER RACES > 60 ML/MIN (>=60 (CALC)); MAGNESIUM 2.5 mg/dL (1.6-2.3); POTASSIUM 4.5 mmol/l (3.5-5.1); SGOT/AST 68 u/l (19-48); SODIUM 139 mmol/l (137-146); TOTAL PROTEIN 6.8 g/dL (6.3-8.2)
[2022-09-16 06:32] VITALS: BP 108/51
[2022-09-16 07:06] VITALS: BP 112/60
--- NOTE | 2022-09-16 09:27 | NUR ---
PT RESTING IN BED. VITAL SIGNS STABLE. NO FURTHER NEEDS AT THIS TIME.
[2022-09-16] MEDS ORDERED: ZPAK PO (10:45)
--- NOTE | 2022-09-16 12:52 | NUR ---
DC INSTRUCTIONS GIVEN. MEDICATION INSTRUCTIONS GIVEN. IV DCED. TELE DCED. PT TAKEN TO CAR IN WC BY CAIN
== END 2022-09-16 12:39 | DRG 291 ==
LOC: ED 06:25 → ED-I 07:07 → ED 12:16 → MS2 12:17
PROVIDERS: Emergency Medicine; ADMIT Internal Medicine; ATTEND Internal Medicine
DX: I11.0 Hypertensive heart disease with heart failure (principal); I50.23 Acute on chronic systolic (congestive) heart failure; J96.01 Acute respiratory failure with hypoxia; J96.02 Acute respiratory failure with hypercapnia; J06.9 Acute upper respiratory infection, unspecified; I25.10 Atherosclerotic heart disease of native coronary artery without angina pectoris; G60.0 Hereditary motor and sensory neuropathy; I73.9 Peripheral vascular disease, unspecified; N40.0 Benign prostatic hyperplasia without lower urinary tract symptoms; Z87.440 Personal history of urinary (tract) infections; Z87.01 Personal history of pneumonia (recurrent); Z95.1 Presence of aortocoronary bypass graft; Z95.810 Presence of automatic (implantable) cardiac defibrillator; Z20.822 Contact with and (suspected) exposure to COVID-19
CPT/HCPCS: J1650